=== PATIENT | male | born 1950 | race Caucasian/White ===

== ENCOUNTER → 2018-10-10 09:59 | Outpatient (CLI) | payer MEDICARE, SELFPAY ==
--- NOTE | 2018-10-10 | DI.US.S_ITS ---
PROCEDURE: US ABD AORTA ANEURYSM SCREEN INDICATIONS: AAA SCREEN TECHNIQUE: Real time scanning was performed of the aorta and iliac arteries, with image documentation. COMPARISON: None. FINDINGS: Aorta: Proximal aortic diameter measures 1.8 cm. Mid-aorta measures 1.7 cm. Distal aortic diameter is 1.5 cm. there are scattered mural calcifications Iliac arteries: Nonvisualized secondary to shadowing bowel gas IMPRESSION: No aortic aneurysm identified. Common iliac arteries not sonographically visible due shadowing bowel gas. Dictated by: Gregor Laws M.D. on 10/10/2018 at 15:17 Approved by: Gregor Laws M.D. on 10/10/2018 at 15:25
== END ==
PROVIDERS: PCP Internal Medicine; Visit Provider Internal Medicine
DX: Z13.6 Encounter for screening for cardiovascular disorders (principal)
CPT/HCPCS: 76706

== ENCOUNTER → 2019-05-28 15:27 | Outpatient (CLI) | payer MEDICARE, SELFPAY ==
--- NOTE | 2019-05-28 | DI.RAD.S_ITS ---
PROCEDURE: XR KNEE LT 1TO2V INDICATIONS: PAIN IN LEFT KNEE TECHNIQUE: 3 views of the left knee were acquired. COMPARISON: [facility], CR, XR KNEE RT 1TO2V, 05/28/2019, 15:37. FINDINGS: Bones: No fractures or dislocations. No suspicious bony lesions. There is a slight degree of thinning of the medial and lateral compartment cartilage at the left knee, near identical to that seen on the right. No effusion or loose body is found. No trauma is seen. Soft tissues: No joint effusion. No suspicious soft tissue calcifications. IMPRESSION: Equivalent degenerative knee joint osteoarthritis at the left knee when compared to the right, mild in overall severity. No trauma found. Dictated by: Ed Taylor M.D. on 05/28/2019 at 16:37 Approved by: Ed Taylor M.D. on 05/28/2019 at 16:38
--- NOTE | 2019-05-28 | DI.RAD.S_ITS ---
PROCEDURE: XR HAND LT 2V INDICATIONS: PAIN IN FINGER OF LEFT HAND TECHNIQUE: 3 views of the hand(s) acquired. COMPARISON: None. FINDINGS: Bones: Cortical irregularity and linear lucency involving the proximal shaft of the fourth middle phalanx. Carpal bones are normally aligned. No suspicious bony lesions. Soft tissues: No suspicious soft tissue calcifications. IMPRESSION: Mild cortical irregularity and lucency seen only on the lateral view involving the proximal shaft of the fourth middle phalanx which could represent nondisplaced fracture. Recommend correlation to point tenderness and if indicated followup x-ray in 10-14 days could be performed. Dictated by: Cayetano GRANDA Interpreted: Ruth Anaya MD on 05/28/2019 at 16:07 Approved by: Ruth Anaya M.D. on 05/28/2019 at 17:15
--- NOTE | 2019-05-28 | DI.RAD.S_ITS ---
PROCEDURE: XR KNEE RT 1TO2V INDICATIONS: PAIN IN RIGHT KNEE TECHNIQUE: 3 views of the knee were acquired. COMPARISON: None. FINDINGS: Bones: No fractures or dislocations. No suspicious bony lesions. There is mild thinning of the medial and lateral compartment joint interspace, but no effusion or loose body is seen. Note is made of a small degree of quadriceps tendon insertion spurring at the superior margin of the patella, consistent with some mild calcific tendinitis. Soft tissues: No joint effusion. No suspicious soft tissue calcifications. IMPRESSION: Mild degenerative knee joint osteoarthritis at the medial lateral compartments with joint space narrowing to a mild degree and no effusion or loose body is found. No trauma seen. Dictated by: Ed Taylor M.D. on 05/28/2019 at 16:35 Approved by: Ed Taylor M.D. on 05/28/2019 at 16:36
== END ==
PROVIDERS: PCP Internal Medicine; Visit Provider Internal Medicine
DX: M25.561 Pain in right knee (principal); M79.645 Pain in left finger(s); M25.562 Pain in left knee
CPT/HCPCS: 73130; 73560

== ENCOUNTER → 2019-09-12 10:40 | Outpatient (CLI) | payer MEDICARE, SELFPAY ==
--- NOTE | 2019-09-12 | DI.MRI.S_ITS ---
PROCEDURE: MR HEAD/BRAIN WO CON INDICATIONS: PARKINSONISM TECHNIQUE: Noncontrast axial T1 spin echo, axial T2 fast spin echo, sagittal and axial FLAIR, coronal T2 fast spin echo, axial gradient echo, axial diffusion and ADC through the brain. COMPARISON: None. FINDINGS: Image quality: Excellent. CSF Spaces: Basal cisterns are patent. No extra-axial fluid collections. Ventricles are normal in size and shape. Brain: No intracranial masses or hemorrhage. Rees/white matter interface is normal. Brainstem appears normal. Diffusion-weighted images demonstrate no acute ischemic insult. No chronic ischemic insults. Normal intravascular flow voids are present. Skull and face: Calvarium has normal marrow signal. Orbits appear normal. Sinuses: Sinuses and mastoids are clear. IMPRESSION: Minimal microvascular atherosclerotic change in the deep white matter of each hemisphere, no mass is found, no focus of prior ischemic injury is identified. Dictated by: Ed Taylor M.D. on 09/14/2019 at 8:55 Approved by: Ed Taylor M.D. on 09/14/2019 at 8:55
== END ==
PROVIDERS: Family Provider Internal Medicine; PCP Internal Medicine; Visit Provider Psychiatry & Neurology Neurology
DX: G20 Parkinson's disease (principal)
CPT/HCPCS: 70551

== ENCOUNTER → 2020-06-24 11:11 | Outpatient (CLI) | payer MEDICARE, SELFPAY ==
--- NOTE | 2020-06-24 | DI.MRI.S_ITS ---
PROCEDURE: MR STROKE Pre- and post-contrast brain MRI, non-contrast brain MR angiogram, pre- and postcontrast neck MR angiogram INDICATIONS: Diplopia TECHNIQUE: Brain: Noncontrast axial T1 spin echo, axial T2 fast spin echo, sagittal and axial FLAIR, coronal T2 fast spin echo, axial gradient echo, axial diffusion and ADC through the brain. After the administration of contrast, axial 3D VIBE of the cranial vasculature and brain. Brain MRA: Non-contrast 3-D time of flight MR angiogram, with multiple dkhbzde-ingnxvdlq-mqecasylzo (MIP) reformats performed. Neck MRA: Axial and sagittal TruFISP through the neck. Coronal dynamic MR angiogram during administration of contrast in the arterial and venous phases, with 3-dimenstional kusznml-tllfucwwb-bftxgkxpak (MIP) reformats constructed from subtraction images. COMPARISON: [facility], MR, MR HEAD/BRAIN WO CON, 09/12/2019, 11:15. FINDINGS: Image quality: Excellent. BRAIN: The ventricular system and cortical sulci demonstrate atrophy, consistent for the patient's stated age. There are areas of increased T2/FLAIR signal intensity within the periventricular and subcortical white matter. There is no acute intra-or extra axial fluid collection. No acute hemorrhage, mass lesion or midline shift. Brainstem is unremarkable. There are no areas of restricted diffusion. Globes are symmetrical. Sinuses demonstrate minimal ethmoid mucosal thickening. Osseous structures are intact. BRAIN MR ANGIOGRAM: Anterior circulation: The anterior circulation, including the anterior and middle cerebral arteries, as well as internal carotid arteries demonstrates no areas of hemodynamically significant stenosis, vascular occlusion or aneurysmal dilation. 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 Posterior circulation: The posterior circulation demonstrates a right vertebral artery dominance. Basilar artery and posterior cerebral arteries demonstrate no areas of hemodynamically significant stenosis, vascular occlusion or aneurysmal dilation. Posterior communicating arteries are within normal limits. NECK MR ANGIOGRAM: The origins of the left and right common, internal and external carotid arteries demonstrate no areas of hemodynamically significant stenosis, vascular occlusion or aneurysmal dilation. Origins of the left and right vertebral arteries demonstrate no areas of hemodynamically significant stenosis, vascular occlusion or aneurysmal dilation. Aortic arch demonstrates conventional anatomy. Limited, visualized portions of the subclavian vasculature are unremarkable. IMPRESSION: 1. No acute intracranial process. 2. Mild atrophy and chronic microvascular ischemic changes. 3. No areas of hemodynamically significant stenosis, vascular occlusion or aneurysmal dilation within the anterior or posterior circulation. 4. No areas of hemodynamically significant stenosis, vascular occlusion or aneurysmal dilation within the neck vasculature. Dictated by: Ruth Anaya M.D. on 06/24/2020 at 16:44 Approved by: Ruth Anaya M.D. on 06/24/2020 at 16:49
== END ==
PROVIDERS: Family Provider Internal Medicine; PCP Internal Medicine; Referring Provider Psychiatry & Neurology Neurology; Visit Provider Psychiatry & Neurology Neurology
DX: H53.2 Diplopia (principal); G20 Parkinson's disease
CPT/HCPCS: 70548; 70553; A9579

== ENCOUNTER → 2020-07-28 09:27 | Outpatient (CLI) | payer MEDICARE, SELFPAY ==
--- NOTE | 2020-07-28 | DI.ECHO.S_ITS ---
[facility] [facility]---------+ [facility] +---------+ : : [address] : : : : [id number] : : : : Phone: [phone]+ Echocardiogram Report + + :Name: VICENTE SINGH Study Date: 07/28/2020 Height: 71.5 in: :[facility] Weight: 288 lb : : Gender: Male BSA: 2.5 m2 : :: 1950 Age: 70 yrs BP: 175/98 mmHg: :Reason For Study: Personal History of other Disease of the : :Nervous System : :Ordering Physician: TANISHA, : :MIGUEL Performed By: Margoth Mcfarlane : :Referring: MACK [place] : + + Interpretation Summary The left ventricle is normal in size and wall thickness. The ejection fraction is estimated to be 60-65%. The right ventricle is normal in size and function. Injection of contrast documented no interatrial shunt. There is a bioprosthetic aortic valve. The prosthetic aortic valve is well-seated. V2 max: 245.4 cm/sec Ao mean P.6 mmHg There is probable normal prosthetic aortic valve function. The peak aortic velocity on the previous exam was 2.5 m/sec. Procedure: A two-dimensional transthoracic echocardiogram with color flow and Doppler was performed. The study quality was technically adequate. Comparison is made with the echocardiogram of 08/25/2018. A saline contrast injection was performed to assess for cardiac shunting. The injection was performed through an intravenous line in the right arm. The patient was in normal sinus rhythm during the exam. Left Ventricle: The left ventricle is normal in size and wall thickness. There is no thrombus. The ejection fraction is estimated to be 60-65%. There are no focal wall motion abnormalities. Diastolic parameters suggest a relaxation abnormality of the left ventricle, consistent with probable normal filling pressures. Right Ventricle: The right ventricle is normal in size and function. Atria: The left atrium is mildly dilated. The left atrium has remained unchanged in size since the prior echo exam. Right atrial size is normal. There is no Doppler evidence for an interatrial shunt. Injection of contrast documented no interatrial shunt. Mitral Valve: The mitral valve leaflets are slightly calcified. There is mild mitral annular calcification. There is trace mitral regurgitation. Aortic Valve: There is a bioprosthetic aortic valve. The prosthetic aortic valve is well-seated. There is probable normal prosthetic aortic valve function. V2 max: 245.4 cm/sec Ao mean P.6 mmHg. The peak aortic velocity on the previous exam was 2.5 m/sec. No aortic regurgitation is present. Tricuspid Valve: The tricuspid valve leaflets are thin and pliable. There is trace tricuspid regurgitation. Pulmonary artery pressures cannot be estimated because of the lack of a measurable TR jet velocity. Pulmonic Valve: The pulmonic valve is not well seen, but is grossly normal. There is no pulmonic valvular regurgitation. Great Vessels: The aortic root is normal size. The ascending aorta is mildly enlarged. There has been no significant change since the previous study. The inferior vena cava was not well visualized. Pericardium/ Pleura There is no pericardial effusion. There is an anterior echo-free space consistent with a fat pad. There is no pleural effusion. MMode/2D Measurements & Calculations LVIDd: 5.4 cm LVOT diam: 2.1 cm LVIDs: 3.6 cm Ao root diam: 3.7 cm FS: 32.5 % asc Aorta Diam: 3.8 cm EPSS: 1.0 cm Ao Arch Diam (Prox Trans): 3.3 cm IVSd: 1.0 cm LVPWd: 1.0 cm LV gonzalez. diameter/BSA (cm/m^2): 2.2 LV sys. diameter/BSA (cm/m^2): 1.5 LA A2 area: 25.7 cm2 RA long axis: 4.4 cm LA A4 area: 18.1 cm2 RA area: 12.4 cm2 LA length (vol): 6.1 cm RA vol: 29.6 ml LA vol: 65.2 ml RA : 12.0 ml/m2 LA vol index: 26.4 ml/m2 RVD1 (basal): 3.7 cm TAPSE: 2.0 cm Doppler Measurements & Calculations Ao V2 max: 245.4 cm/sec LVOT Max Tremayne: 100.2 cm/sec Ao V2 mean: 173.4 cm/sec LV V1 max P.0 mmHg Ao max P.1 mmHg LV V1 VTI: 25.2 cm Ao mean P.6 mmHg NATACHA(I,D): 1.5 cm2 Ao V2 VTI: 58.1 cm NATACHA(V,D): 1.4 cm2 sev ratio: 0.43 NATACHA indexed to BSA (cm^2/m^2): 0.59 MV E max tremayne: 98.2 cm/sec PA V2 max: 71.3 cm/sec MV A max tremayne: 110.0 cm/sec PA V2 mean: 46.7 cm/sec MV E/A: 0.89 PA mean P.0 mmHg Med Peak E' Tremayne: 7.6 cm/sec PA pr(Accel): 25.9 mmHg E/E' med: 12.9 Lat Peak E' Tremayne: 9.8 cm/sec E/E' lat: 10.0 E/e' average: 11.4 MV dec time: 0.22 sec SV(LVOT): 85.4 ml Reading Physician:05:42 PM
== END ==
PROVIDERS: Family Provider Internal Medicine; PCP Internal Medicine; Referring Provider Internal Medicine Cardiovascular Disease; Visit Provider Internal Medicine Cardiovascular Disease
DX: I77.89 Other specified disorders of arteries and arterioles (principal); Z95.2 Presence of prosthetic heart valve; Z86.69 Personal history of other diseases of the nervous system and sense organs
CPT/HCPCS: 93306

== ENCOUNTER → 2020-11-02 13:07 | Outpatient (CLI) | payer MEDICARE, SELFPAY ==
[2020-11-02] MEDS: COVID-19 VACC #1, MRNA(MOD) 100 MCG/0.5 ML VIAL IM (13:14)
== END ==
PROVIDERS: Family Provider Internal Medicine; PCP Internal Medicine; Visit Provider Internal Medicine
DX: Z23 Encounter for immunization (principal)
CPT/HCPCS: 0011A; 91301

== ENCOUNTER → 2020-11-30 12:33 | Outpatient (CLI) | payer MEDICARE, SELFPAY ==
[2020-11-30] MEDS: COVID-19 VACC #2, MRNA(MOD) 100 MCG/0.5 ML VIAL IM (12:39)
== END ==
PROVIDERS: Family Provider Internal Medicine; PCP Internal Medicine; Visit Provider Internal Medicine
DX: Z23 Encounter for immunization (principal)
CPT/HCPCS: 0012A; 91301

== ENCOUNTER → 2023-01-09 12:32 | Outpatient (CLI) | payer MEDICARE, SELFPAY ==
--- NOTE | 2023-01-09 | DI.ECHO.S_ITS ---
[place] +---------+ [facility] +---------+ : : [address] : : : : [id number] : : : : Phone: [phone]+ Echocardiogram Report + + :Name: VICENTE SINGH Study Date: 01/09/2023 Height: 72 in : :[facility] ReadingLocation: Weight: 270 lb : : Gender: Male BSA: 2.4 m2 : :: 1950 Age: 72 yrs BP: 135/79 mmHg: :Reason For Study: XENOGENIC HEART VALVE : :Ordering Physician: TANISHA, : :MIGUEL Performed By: Margoth Mcfarlane : :Referring: MIGUEL GARAY : + + Interpretation Summary The left ventricle is normal in size and wall thickness. Left ventricular systolic function is normal. The ejection fraction is estimated to be 60-65%. This is unchanged compared to the previous study. The right ventricle is normal in size and function. There is a bioprosthetic aortic valve. The prosthetic aortic valve is well-seated. The peak aortic velocity is 2.6 m/sec. The aortic valve mean gradient is 16 mmHg. The peak aortic velocity on the previous exam was 2.45 m/sec. No significant aortic stenosis. The ascending aorta is mildly enlarged. This is unchanged compared to the previous study. The IVC is of normal diameter and collapses greater than 50% with a sniff. This suggests a low right atrial pressure of 3 mm Hg. Procedure: A two-dimensional transthoracic echocardiogram with color flow and Doppler was performed. The study quality was technically adequate. Comparison is made with the echocardiogram of 07/28/2020. The patient was in sinus rhythm with heart rates between 65-77 bpm during the exam. Left Ventricle: The left ventricle is normal in size and wall thickness. There is no thrombus. The ejection fraction is estimated to be 60-65%. Left ventricular systolic function is normal. This is unchanged compared to the previous study. There are no focal wall motion abnormalities. MV E/A: 1.0 Med Peak E' Tremayne: 7.7 cm/sec E/E' med: 13.9. No significant diastolic dysfunction. Right Ventricle: The right ventricle is normal in size and function. Atria: The left atrium is mildly dilated. There has been no significant change since the previous study. Right atrial size is normal. There is no Doppler evidence for an interatrial shunt. Mitral Valve: The mitral valve leaflets are slightly calcified. There is mild mitral annular calcification. There is trace mitral regurgitation. Aortic Valve: There is a bioprosthetic aortic valve. The prosthetic aortic valve is well-seated. The peak aortic velocity is 2.6 m/sec. The aortic valve mean gradient is 16 mmHg. The peak aortic velocity on the previous exam was 2.45 m/sec. No aortic regurgitation is present. Tricuspid Valve: The tricuspid valve is normal. There is trace tricuspid regurgitation. The right ventricular systolic pressure is estimated to be at least 31 mmHg based on an estimated right atrial pressure of 3 mm Hg. Pulmonic Valve: The pulmonic valve leaflets are thin and pliable; valve motion is normal. There is no pulmonic valvular regurgitation. Great Vessels: The ascending aorta is mildly enlarged. This is unchanged compared to the previous study. The IVC is of normal diameter and collapses greater than 50% with a sniff. This suggests a low right atrial pressure of 3 mm Hg. Pericardium/ Pleura There is no pericardial effusion. There is no pleural effusion. MMode/2D Measurements & Calculations LVIDd: 5.3 cm LVOT diam: 2.1 cm LVIDs: 3.4 cm asc Aorta Diam: 3.8 cm FS: 34.7 % EPSS: 0.70 cm IVSd: 0.92 cm LVPWd: 0.84 cm LV gonzalez. diameter/BSA (cm/m^2): 2.2 LV sys. diameter/BSA (cm/m^2): 1.4 LA A2 area: 27.3 cm2 RA long axis: 4.2 cm LA A4 area: 22.8 cm2 RA area: 12.9 cm2 LA length (vol): 5.9 cm RA vol: 33.9 ml LA vol: 89.0 ml RA : 14.0 ml/m2 LA vol index: 36.8 ml/m2 IVC diam: 1.4 cm RVD1 (basal): 3.1 cm RVD2 (mid): 2.6 cm TAPSE: 2.0 cm Doppler Measurements & Calculations Ao V2 max: 255.7 cm/sec LVOT Max Tremayne: 90.2 cm/sec Ao V2 mean: 186.4 cm/sec LV V1 max P.3 mmHg Ao max P.2 mmHg LV V1 VTI: 23.0 cm Ao mean P.5 mmHg NATACHA(I,D): 1.3 cm2 Ao V2 VTI: 60.8 cm NATACHA(V,D): 1.2 cm2 sev ratio: 0.38 NATACHA indexed to BSA (cm^2/m^2): 0.52 MV E max tremayne: 106.5 cm/sec TR max tremayne: 262.0 cm/sec MV A max tremayne: 103.9 cm/sec TR max P.5 mmHg MV E/A: 1.0 PA V2 max: 107.9 cm/sec Med Peak E' Tremayne: 7.7 cm/sec PA V2 mean: 79.4 cm/sec E/E' med: 13.9 PA mean P.7 mmHg Lat Peak E' Tremayne: 9.8 cm/sec PA pr(Accel): 19.1 mmHg E/E' lat: 10.9 E/e' average: 12.4 MV dec time: 0.28 sec SV(LVOT): 77.2 ml Reading Physician:11:54 AM
== END ==
PROVIDERS: PCP Internal Medicine; Referring Provider Internal Medicine Cardiovascular Disease; Visit Provider Internal Medicine Cardiovascular Disease
DX: Z95.3 Presence of xenogenic heart valve (principal); I77.89 Other specified disorders of arteries and arterioles; I34.81 Nonrheumatic mitral (valve) annulus calcification
CPT/HCPCS: 93306

== ENCOUNTER 2023-12-28 12:58 | Emergency (ER) | payer MEDICARE, SELFPAY ==
[2023-12-28 13:01] VITALS: BP 151/72; PULSE 67; RESP 17; TEMP 36.1; O2SAT 95; BMI 30.4
--- NOTE | 2023-12-28 13:12 | DI.US.S_ITS ---
PROCEDURE: US PERIPH VENOUS LOW EXTREM LT INDICATIONS: r/o DVT TECHNIQUE: Real-time imaging, as well as color and pulse Doppler interrogation, were performed of the lower extremity deep veins from the inguinal ligament to the popliteal fossa, with documentation of the visualized calf veins. COMPARISON: None. FINDINGS: The common femoral, femoral, popliteal, and the visualized calf veins are normally compressible, and free of intraluminal thrombus. Color and pulse Doppler demonstrate normal phasic intraluminal flow. There is normal augmentation response to distal compression maneuver. The peroneal vein is not well identified secondary to adjacent edema. IMPRESSION: No findings of lower extremity deep venous thrombosis. Dictated by: Seymour Reynolds M.D. on 12/28/2023 at 12:56 Approved by: Seymour Reynolds M.D. on 12/28/2023 at 12:57
--- NOTE | 2023-12-28 13:17 | ED.EXTPRO ---
HPI - Extremity Problem General Chief complaint: Extremity Problem,Nontraumatic Stated complaint: lt leg swollen warm to the touch Time Seen by Provider: 12/28/23 13:08 Source: patient and family Mode of arrival: Ambulatory History of Present Illness HPI Narrative: 73-year-old male with history of gout, Parkinson's disease presents by private vehicle from home for several weeks of intermittent left lower extremity pain, worse in the last week. Patient states that today his left leg seemed to turn red, prompting his visit to the emergency department. He states that he has brought this up with his physicians in the past, but the issue has not been addressed. It does get better temporarily with leg elevation. He states he used to wear compression socks but his leg is too large to comfortably put socks on anymore, especially with his Parkinson's disease. He states that he was not been put on diuretics due to his gout. Related Data Home Medications Medication Instructions Recorded Confirmed ascorbic acid (vitamin C) 500 mg 500 mg PO BID #0 tabs 07/17/16 tablet Previous Rx's Medication Instructions Recorded ciprofloxacin HCl 500 mg tablet 500 mg PO BID #14 tabs 07/17/16 (Cipro) metronidazole 500 mg tablet 500 mg PO BID ##14 07/17/16 (Flagyl) cephalexin 500 mg capsule 500 mg PO QID #20 caps 12/28/23 furosemide 40 mg tablet (Lasix) 40 mg PO DAILY #10 tabs 12/28/23 Allergies Allergy/AdvReac Type Severity Reaction Status Date / Time Penicillins [PENICILLINS] Allergy Severe FAINTING Verified 12/28/23 13:01 Sulfa (Sulfonamide Allergy Severe swelling Verified 12/28/23 13:01 Antibiotics) [SULFA (SULFONAMIDE ANTIBIOTICS)] Review of Systems Review of Systems Narrative: negative except as noted above Patient History Medical History (Updated 12/28/23 @ 15:24 by Natalya Vivas MD) Gout (~1987) GERD (gastroesophageal reflux disease) Obesity (BMI 30-39.9) Ischemic heart disease Type 2 diabetes mellitus Hyperlipidemia associated with type 2 diabetes mellitus Hypertension Primary insomnia Snoring (~1987) Surgical History (Updated 07/02/18 @ 17:20 by WILL Garcia) S/P AVR (aortic valve replacement) (~2014) Social History (Updated 07/02/18 @ 17:28 by ART Garcia marital status: details: 2 (adopted) adult children, each with mental illness/special needs number of children: 2 household members: spouse lives independently: Yes housing: house pets and animals: Yes education level: college occupational status: employed 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 Smoking Status: Former smoker alcohol intake: former substance use type: does not use Smoking Status: Former smoker Substance Use Type: does not use Exam Initial Vital Signs Initial Vital Signs: Vital Signs Temperature 97 F L 12/28/23 13:01 Pulse Rate 67 12/28/23 13:01 Respiratory Rate 17 12/28/23 13:01 Blood Pressure 151/72 H 12/28/23 13:01 Pulse Oximetry 95 12/28/23 13:01 Oxygen Delivery Method Room Air 12/28/23 13:01 Const: Awake, alert, no acute distress, appears chronically unwell, older than stated age Cardiac: regular rate, regular rhythm RESP: unlabored, clear bilaterally, no wheezing GI: Soft, nontender, nondistended, no rebound, no guarding MSK: Atraumatic, LLE larger than RLE, warm, dry, 3+ pitting edema LLE to thigh, trace pitting edema RLE to knee Skin: Warm, Dry, intact, trace erythema from L ankle to L knee Neuro: AO x3, CN II-XII grossly intact, moves all extremities Course Orders Ordered: Discontinued Medications Furosemide (Furosemide 40 Mg/4 Ml Vial) 40 mg IV NOW ONE Stop: 12/28/23 15:24 Last Admin: 12/28/23 15:37 Dose: 40 mg Documented By: NL Vital Signs Vital signs: Vital Signs - 8 hr 12/28/23 13:01 Temperature 97 F L Pulse Rate 67 Respiratory Rate 17 Blood Pressure 151/72 H Pulse Oximetry 95 Oxygen Delivery Method Room Air MDM - Extremity (Nontraumatic) Differential Diagnosis Differential diagnosis: Likely deep venous thrombosis of upper extremity, lower extremity edema and deep vein thrombosis of lower extremity Lab Data 12/28/23 13:25 12/28/23 13:25 Labs: Lab Results 12/28/23 Range/Units 13:25 WBC 8.3 (4.5-11.0) X10^3/uL RBC 4.70 (4.5-5.9) X10^6/uL Hgb 13.9 (13.5-17.5) g/dL Hct 42.0 (41-53) % MCV 89.2 (80-100) fL MCH 29.6 (26-34) PG MCHC 33.2 (30-36) % RDW 13.6 (11.6-14.8) % Plt Count 235 (150-400) X10^3/uL Neut % (Auto) 71.6 (50-75) % Lymph % (Auto) 16.9 L (25-40) % [place] % (Auto) 8.2 (3-14) % Eos % (Auto) 2.6 (2-4) % Baso % (Auto) 0.7 (0-2) % Neut # (Auto) 5900 (2852-0835) /uL Lymph # (Auto) 1400 (8779-5849) /uL [place] # (Auto) 700 (0-900) /uL Eos # (Auto) 200 (0-450) /uL Baso # (Auto) 100 (0-100) /uL PT 12.2 (9.4-12.5) SECONDS INR 1.1 (0.9-1.3) Sodium 141 (137-145) mmol/L Potassium 4.2 (3.4-5.1) mmol/L Chloride 107 (98-107) mmol/L Carbon Dioxide 26 (22-32) mmol/L BUN 13 (9-20) mg/dL Creatinine 0.73 (0.66-1.25) mg/dL Estimated GFR > 60 (>60) mL/min BUN/Creatinine Ratio 17.8 (6-22) Glucose 107 (80-110) mg/dL Calcium 9.3 (8.4-10.2) mg/dL Total Bilirubin 0.6 (0.2-1.3) mg/dL AST 29 (17-59) IU/L ALT 12 (<50) IU/L Alkaline Phosphatase 66 (38-126) U/L Total Protein 7.4 (6.3-8.2) g/dL Albumin 4.2 (3.5-5.0) g/dL Globulin 3.2 (1.7-4.1) g/dL Albumin/Globulin Ratio 1.3 (1.0-2.8) Imaging Data US - DVT: Radiologist's Impression: PROCEDURE: US PERIPH VENOUS LOW EXTREM LT INDICATIONS: r/o DVT TECHNIQUE: Real-time imaging, as well as color and pulse Doppler interrogation, were performed of the lower extremity deep veins from the inguinal ligament to the popliteal fossa, with documentation of the visualized calf veins. COMPARISON: None. FINDINGS: The common femoral, femoral, popliteal, and the visualized calf veins are normally compressible, and free of intraluminal thrombus. Color and pulse Doppler demonstrate normal phasic intraluminal flow. There is normal augmentation response to distal compression maneuver. The peroneal vein is not well identified secondary to adjacent edema. IMPRESSION: No findings of lower extremity deep venous thrombosis. Dictated by: Seymour Reynolds M.D. on 12/28/2023 at 12:56 Approved by: Seymour Reynolds M.D. on 12/28/2023 at 12:57 [facility] Narrative Medical decision making narrative: Patient with longstanding intermittent waxing and waning swelling of the left lower extremity. Seems to have gotten worse in the last week with some redness starting on the lower extremity. Laboratory work is reviewed, unremarkable. Ultrasound of the lower extremity shows no DVT. Initial exam of the left lower extremity did not seem to reveal any temperature difference between the left and right extremities, however on repeat exam it does seem that the left lower extremity is warmer than the right lower extremity. Sensation and movement equal bilaterally. Labs and imaging discussed with the patient and his at bedside. They stated out of precaution it would be prudent to treat as evolving lower extremity cellulitis. Shared decision-making was had with the patient and at bedside. I stated that diuretics may help with the lower extremity swelling especially since he was edema on both sides, however it would, the risk of worsening his gout. Patient stated that he would like to try as his lower extremity swelling has become a significant bother and he would like to try anything to see if it helps. Initial dose of Lasix given in the emergency department and short course of diuretics sent to pharmacy of choice. PCP and cardiology follow up advised. Discharge Plan Departure Patient Disposition: Home Clinical Impression: Leg swelling, Cellulitis Instructions: DI for Cellulitis -- Adult, DI for Peripheral Edema -- Bilateral Activity Restrictions/Additional Instructions: Your ultrasound today did not show any evidence of blood clots. When I initially felt your leg did not feel warm, but on reassessment it did feel warm to the touch, and so as a precaution I will treat you for cellulitis. Take all of your antibiotics as prescribed. After shared decision-making I will start you on a short course of Lasix to help decrease your swelling. This may flare your gout, make sure you monitor your diet closely and take your allopurinol as prescribed. 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 Prescriptions: New cephalexin 500 mg capsule 500 mg PO QID Qty: 20 0RF furosemide [Lasix] 40 mg tablet 40 mg PO DAILY Qty: 10 0RF No Action ascorbic acid (vitamin C) 500 MG tablet 500 mg PO BID Qty: 0 metronidazole [Flagyl] 500 MG tablet 500 mg PO BID Qty: 14 0RF ciprofloxacin HCl [Cipro] 500 MG tablet 500 mg PO BID Qty: 14 0RF Referrals: Ynes Laird MD [Primary Care Provider] - Stand Alone Forms: Patient Portal/API
[2023-12-28 13:44] LABS: INR 1.1 (0.9-1.3); Prothrombin Time 12.2 SECONDS (9.4-12.5)
[2023-12-28 13:49] LABS: Alanine Aminotransferase 12 IU/L (<50); Albumin 4.2 g/dL (3.5-5.0); Albumin Globulin Ratio 1.3 (1.0-2.8); Alkaline Phosphatase 66 U/L (38-126); Aspartate Aminotransferase 29 IU/L (17-59); BUN Creatinine Ratio 17.8 (6-22); Bilirubin Total 0.6 mg/dL (0.2-1.3); Blood Urea Nitrogen 13 mg/dL (9-20); Calcium 9.3 mg/dL (8.4-10.2); Carbon Dioxide 26 mmol/L (22-32); Chloride 107 mmol/L (98-107); Estimated Glomerular Filt Rate > 60 mL/min (>60); Globulin 3.2 g/dL (1.7-4.1); Glucose 107 mg/dL (80-110); HEMOLYSIS < 15 (0-50); Potassium 4.2 mmol/L (3.4-5.1); Sodium 141 mmol/L (137-145); Total Protein 7.4 g/dL (6.3-8.2)
[2023-12-28 13:56] LABS: Add Manual Diff / Slide Review NO; Basophils Absolute Auto 100 /uL (0-100); Basophils Percent Auto 0.7 % (0-2); Eosinophils Absolute Auto 200 /uL (0-450); Eosinophils Percent Auto 2.6 % (2-4); Hemoglobin 13.9 g/dL (13.5-17.5); Lymphocytes Absolute Auto 1400 /uL (1100-4500); Lymphocytes Percent Auto 16.9 % (25-40); Mean Corpuscular HGB Conc 33.2 % (30-36); Mean Corpuscular Hemoglobin 29.6 PG (26-34); Mean Corpuscular Volume 89.2 fL (80-100); Monocytes Absolute Auto 700 /uL (0-900); Monocytes Percent Auto 8.2 % (3-14); Neutrophils Absolute Auto 5900 /uL (1500-7000); Neutrophils Percent Auto 71.6 % (50-75); Platelet Count 235 X10^3/uL (150-400); Red Cell Distribution Width 13.6 % (11.6-14.8); White Blood Cell Count 8.3 X10^3/uL (4.5-11.0)
[2023-12-28] MEDS: FUROSEMIDE 40 MG/4 ML VIAL IV (15:37)
[2023-12-28 15:43] VITALS: PULSE 56; O2SAT 97
[2023-12-28 15:44] VITALS: BP 170/78; PULSE 57; O2SAT 98
--- NOTE | 2023-12-28 15:55 | PC.NURSE ---
pt given lasix, unsure if he has had it prior to today. pt being held prior to discharge for 15min. given urinal to take home for comfort.
[2023-12-28 16:03] VITALS: O2SAT 93
[2023-12-28 16:04] VITALS: BP 176/80; PULSE 55; O2SAT 97
== END 2023-12-28 16:07 | disposition home or self-care (01) ==
PROVIDERS: Emergency Provider Emergency Medicine; PCP Internal Medicine
DX: L03.116 Cellulitis of left lower limb (principal); R60.0 Localized edema; G20.A1 Parkinson's disease without dyskinesia, without mention of fluctuations
CPT/HCPCS: 36415; 80053; 85025; 85610; 93971; 96374; 99284; J1940

== ENCOUNTER → 2024-02-25 13:32 | Outpatient (CLI) | payer MEDICARE, SELFPAY ==
--- NOTE | 2024-02-25 13:35 | DI.RAD.S_ITS ---
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 COMPARISON: None. FINDINGS: Bones: Questionable nondisplaced 1st tuft fracture. Soft tissues: No suspicious soft tissue densities. Soft tissue swelling of the 1st digit. IMPRESSION: Questionable nondisplaced 1st tuft fracture. Dictated by: Nahum Lynch M.D. on 02/25/2024 at 15:11 Approved by: Nahum Lynch M.D. on 02/25/2024 at 15:12
== END ==
PROVIDERS: PCP Internal Medicine; Referring Provider Student in an Organized Health Care Education/Training Program; Visit Provider Student in an Organized Health Care Education/Training Program
DX: S99.922A Unspecified injury of left foot, initial encounter (principal); X58.XXXA Exposure to other specified factors, initial encounter
CPT/HCPCS: 73660

== ENCOUNTER → 2024-03-05 13:04 | Outpatient (CLI) | payer MEDICARE, SELFPAY | PROVIDERS: PCP Internal Medicine; Referring Provider Student in an Organized Health Care Education/Training Program; Visit Provider Surgery | DX: S91.102A Unspecified open wound of left great toe without damage to nail, initial encounter (principal); S91.105A Unspecified open wound of left lesser toe(s) without damage to nail, initial encounter; E11.628 Type 2 diabetes mellitus with other skin complications; R60.0 Localized edema; L53.9 Erythematous condition, unspecified; L08.89 Other specified local infections of the skin and subcutaneous tissue | CPT/HCPCS: 97597; 99203; 99214 ==

== ENCOUNTER → 2024-03-12 15:11 | Outpatient (CLI) | payer MEDICARE, SELFPAY | PROVIDERS: PCP Internal Medicine; Referring Provider Student in an Organized Health Care Education/Training Program; Visit Provider Surgery | DX: S91.112D Laceration without foreign body of left great toe without damage to nail, subsequent encounter (principal); S91.115D Laceration without foreign body of left lesser toe(s) without damage to nail, subsequent encounter | CPT/HCPCS: 99213 ==

== ENCOUNTER 2024-04-28 16:37 | Observation (INO) | payer MEDICARE, SELFPAY ==
[2024-04-28 16:40] VITALS: BP 116/62; PULSE 76; RESP 16; TEMP 36.4; O2SAT 96; BMI 36.6
--- NOTE | 2024-04-28 16:47 | DI.US.S_ITS ---
PROCEDURE: US [facility] VENOUS LOW EXTREM LT INDICATIONS: increased swelling, redness, pain TECHNIQUE: Real-time imaging, as well as color and pulse Doppler interrogation, were performed of the lower extremity deep veins from the inguinal ligament to the popliteal fossa, with documentation of the visualized calf veins. COMPARISON: [facility], [facility] VENOUS LOW EXTREM LT, 12/28/2023, 13:22. FINDINGS: The common femoral, femoral, popliteal, and the visualized calf veins are normally compressible, and free of intraluminal thrombus. Color and pulse Doppler demonstrate normal phasic intraluminal flow. There is normal augmentation response to distal compression maneuver. IMPRESSION: No findings of lower extremity deep venous thrombosis. Dictated by: Ruth Anaya M.D. on 04/28/2024 at 18:50 Approved by: Ruth Anaya M.D. on 04/28/2024 at 18:52
--- NOTE | 2024-04-28 18:48 | ED.EXTPRO ---
HPI - Extremity Problem General Chief complaint: Extremity Problem,Nontraumatic Stated complaint: leg swelling and painful Time Seen by Provider: 04/28/24 18:47 Source: patient Mode of arrival: Wheelchair Related Data Home Medications Medication Instructions Recorded Confirmed allopurinol 300 mg tablet 300 mg PO DAILY 02/25/24 02/25/24 ascorbic acid (vitamin C) 500 mg mg PO PRN 02/25/24 02/25/24 capsule aspirin 81 mg chewable tablet 81 mg PO DAILY 02/25/24 02/25/24 atorvastatin 10 mg tablet (Lipitor) 5 mg PO BEDTIME PRN 02/25/24 02/25/24 capsaicin 0.025 % topical cream 1 applic topical QID 02/25/24 02/25/24 carbidopa 25 mg-levodopa 100 mg 2 tab PO TID 02/25/24 02/25/24 disintegrating tablet carbidopa ER 50 mg-levodopa 200 mg 1 tab PO BEDTIME 02/25/24 02/25/24 tablet,extended release carvedilol 6.25 mg tablet (Coreg) 6.25 mg PO BID 02/25/24 02/25/24 coenzyme Q10 200 mg/gram oral mg PO 02/25/24 02/25/24 powder (H2Q CoQ10) fluticasone propionate 50 2 spray intranasal DAILY 02/25/24 02/25/24 mcg/actuation nasal spray,suspension glipizide 5 mg tablet 5 mg PO DAILY 02/25/24 02/25/24 losartan 50 mg tablet (Cozaar) 50 mg PO DAILY 02/25/24 02/25/24 mecobalamin (vitamin B12) 2,500 mcg PO 02/25/24 02/25/24 mcg chewable tablet metformin 1,000 mg tablet 1,000 mg PO BID 02/25/24 02/25/24 multivitamin 1 tab PO DAILY 02/25/24 02/25/24 omeprazole 20 mg capsule,delayed 20 mg PO DAILY 02/25/24 02/25/24 release trazodone 50 mg tablet 75 mg PO BEDTIME PRN 02/25/24 02/25/24 venlafaxine 75 mg capsule,extended 75 mg PO DAILY 02/25/24 02/25/24 release 24 hr Previous Rx's Medication Instructions Recorded furosemide 40 mg tablet (Lasix) 40 mg PO DAILY #10 tabs 12/28/23 Allergies Allergy/AdvReac Type Severity Reaction Status Date / Time Penicillins [PENICILLINS] Allergy Severe FAINTING Verified 02/25/24 12:27 Sulfa (Sulfonamide Allergy Severe swelling Verified 02/25/24 12:27 Antibiotics) [SULFA (SULFONAMIDE ANTIBIOTICS)] strawberry Allergy Rash Verified 04/28/24 16:40 Patient History Medical History Gout (~1987) GERD (gastroesophageal reflux disease) Obesity (BMI 30-39.9) Ischemic heart disease Type 2 diabetes mellitus Hyperlipidemia associated with type 2 diabetes mellitus Hypertension Primary insomnia Snoring (~1987) Surgical History S/P AVR (aortic valve replacement) (~2014) Social History (Updated 07/02/18 @ 17:28 by WILL Garcia) marital status: details: 2 (adopted) adult children, each with mental illness/special needs number of children: 2 household members: spouse lives independently: Yes housing: house pets and animals: Yes education level: college occupational status: employed 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 Smoking Status: Former smoker alcohol intake: former substance use type: does not use Smoking Status: Former smoker Substance Use Type: does not use Exam Initial Vital Signs Initial Vital Signs: Vital Signs Temperature 97.5 F L 04/28/24 16:40 Pulse Rate 76 04/28/24 16:40 Respiratory Rate 16 04/28/24 16:40 Blood Pressure 116/62 04/28/24 16:40 Pulse Oximetry 96 04/28/24 16:40 Oxygen Delivery Method Room Air 04/28/24 16:40 Course Orders Ordered: ED Orders 04/28/24 16:47 US periph venous low extrem lt Stat 04/28/24 18:47 CBC Auto Diff [Complete Blood Count AUTO DIFF] Stat CMP [Comprehensive Metabolic Panel] Stat Lactate (Lactic Acid) Stat Vital Signs Vital signs: Vital Signs - 8 hr 04/28/24 16:40 Temperature 97.5 F L Pulse Rate 76 Respiratory Rate 16 Blood Pressure 116/62 Pulse Oximetry 96 Oxygen Delivery Method Room Air Discharge Plan Departure Prescriptions: No Action carvedilol [Coreg] 6.25 mg tablet 6.25 mg PO BID Rx Instructions: must administer with a meal/food allopurinol 300 mg tablet 300 mg PO DAILY losartan [Cozaar] 50 mg tablet 50 mg PO DAILY metformin 1,000 mg tablet 1,000 mg PO BID glipizide 5 mg tablet 5 mg PO DAILY atorvastatin [Lipitor] 10 mg tablet 5 mg PO BEDTIME PRN venlafaxine 75 mg capsule,extended release 24hr 75 mg PO DAILY carbidopa-levodopa 25-100 mg tablet,disintegrating 2 tab PO TID carbidopa-levodopa 50-200 mg tablet extended release 1 tab PO BEDTIME trazodone 50 mg tablet 75 mg PO BEDTIME PRN ascorbic acid (vitamin C) 500 mg capsule PO PRN Patient Comments: twice a day omeprazole 20 mg capsule,delayed release(DR/EC) 20 mg PO DAILY mecobalamin (vitamin B12) 2,500 mcg tablet,chewable PO aspirin 81 mg tablet,chewable 81 mg PO DAILY multivitamin Tablet 1 tab PO DAILY H2Q CoQ10 200 mg/gram powder PO fluticasone propionate 50 mcg/actuation spray,suspension 2 spray intranasal DAILY Rx Instructions: administer into each nostril capsaicin 0.025 % cream 1 applic topical QID Rx Instructions: do not wash area for at least 30 min after application furosemide [Lasix] 40 mg tablet 40 mg PO DAILY Qty: 10 0RF Referrals: Ynes Laird MD [Primary Care Provider] -
[2024-04-28 19:52] VITALS: BP 157/72; PULSE 52; O2SAT 96
[2024-04-28 19:53] VITALS: BP 157/72; PULSE 52; O2SAT 95
[2024-04-28 19:54] LABS: Add Manual Diff / Slide Review NO; Basophils Absolute Auto 100 /uL (0-100); Basophils Percent Auto 0.8 % (0-2); Eosinophils Absolute Auto 200 /uL (0-450); Eosinophils Percent Auto 1.6 % (2-4); Hematocrit 41.5 % (41-53); Hemoglobin 13.6 g/dL (13.5-17.5); Lymphocytes Absolute Auto 1800 /uL (1100-4500); Lymphocytes Percent Auto 15.9 % (25-40); Mean Corpuscular HGB Conc 32.8 % (30-36); Mean Corpuscular Hemoglobin 29.4 PG (26-34); Mean Corpuscular Volume 89.8 fL (80-100); Monocytes Absolute Auto 1000 /uL (0-900); Monocytes Percent Auto 9.2 % (3-14); Neutrophils Absolute Auto 8000 /uL (1500-7000); Neutrophils Percent Auto 72.5 % (50-75); Platelet Count 237 X10^3/uL (150-400); Red Blood Cell Count 4.62 X10^6/uL (4.5-5.9)
[2024-04-28 20:00] VITALS: BP 145/71; PULSE 53; O2SAT 96
[2024-04-28 20:07] LABS: Alanine Aminotransferase 7 IU/L (<50); Albumin 4.3 g/dL (3.5-5.0); Albumin Globulin Ratio 1.7 (1.0-2.8); Alkaline Phosphatase 90 U/L (38-126); Aspartate Aminotransferase 22 IU/L (17-59); BUN Creatinine Ratio 19.2 (6-22); Bilirubin Total 0.5 mg/dL (0.2-1.3); Blood Urea Nitrogen 14 mg/dL (9-20); Calcium 8.9 mg/dL (8.4-10.2); Carbon Dioxide 23 mmol/L (22-32); Chloride 107 mmol/L (98-107); Estimated Glomerular Filt Rate > 60 mL/min (>60); Globulin 2.6 g/dL (1.7-4.1); Glucose 95 mg/dL (80-110); HEMOLYSIS < 15 (0-50); Lactate (Lactic Acid) 1.3 mmol/L (0.7-2.1); Potassium 4.4 mmol/L (3.4-5.1); Sodium 141 mmol/L (137-145); Total Protein 6.9 g/dL (6.3-8.2)
[2024-04-28 20:30] VITALS: BP 149/73; PULSE 56; RESP 18; O2SAT 97
--- NOTE | 2024-04-28 21:44 | ED_ITS ---
HPI - Extremity Problem General Chief complaint: Extremity Problem,Nontraumatic Stated complaint: leg swelling and painful Time Seen by Provider: 04/28/24 18:47 Source: patient Mode of arrival: Wheelchair History of Present Illness HPI Narrative: 74-year-old male with history of left foot and leg cellulitis 4 months ago treated with antibiotics, got better, now with 4 days duration increasing redness and swelling to the left leg. No recent injury recalled. No history of sores around the toenails or between the toes. No history of blood clots to legs or lungs. No shortness of breath or chest pain. He does not feel feverish. Increasing pain. He has not tried any treatments thus far, not taking any antibiotics. Related Data Home Medications Medication Instructions Recorded Confirmed allopurinol 300 mg tablet 300 mg PO DAILY 02/25/24 04/29/24 ascorbic acid (vitamin C) 500 mg 500 mg PO DAILY 02/25/24 04/29/24 capsule aspirin 81 mg chewable tablet 81 mg PO DAILY 02/25/24 04/29/24 atorvastatin 10 mg tablet (Lipitor) 5 mg PO BEDTIME 02/25/24 04/29/24 capsaicin 0.025 % topical cream 1 applic topical QID 02/25/24 04/29/24 carbidopa 25 mg-levodopa 100 mg 2 tab PO TID 02/25/24 04/29/24 disintegrating tablet carbidopa ER 50 mg-levodopa 200 mg 1 tab PO BEDTIME 02/25/24 04/29/24 tablet,extended release carvedilol 6.25 mg tablet (Coreg) 6.25 mg PO BID 02/25/24 04/29/24 fluticasone propionate 50 2 spray intranasal DAILY 02/25/24 04/29/24 mcg/actuation nasal spray,suspension losartan 50 mg tablet (Cozaar) 50 mg PO DAILY 02/25/24 04/29/24 mecobalamin (vitamin B12) 2,500 2,500 mcg PO DAILY 02/25/24 04/29/24 mcg chewable tablet multivitamin 1 tab PO DAILY 02/25/24 04/29/24 omeprazole 20 mg capsule,delayed 20 mg PO DAILY PRN Heartburn 02/25/24 02/25/24 release trazodone 50 mg tablet 75 mg PO BEDTIME PRN Insomnia 02/25/24 04/29/24 venlafaxine 75 mg capsule,extended 75 mg PO DAILY 02/25/24 04/29/24 release 24 hr glipizide 5 mg tablet, extended 5 mg PO DAILY 04/29/24 04/29/24 release 24 hr metformin 500 mg tablet,extended 1,000 mg PO BID 04/29/24 04/29/24 release 24 hr pregabalin 150 mg capsule 150 mg PO TID 04/29/24 04/29/24 tamsulosin 0.4 mg capsule 0.4 mg PO DAILY 04/29/24 04/29/24 Previous Rx's Medication Instructions Recorded furosemide 40 mg tablet (Lasix) 40 mg PO DAILY #10 tabs 12/28/23 Allergies Allergy/AdvReac Type Severity Reaction Status Date / Time Penicillins [PENICILLINS] Allergy Severe FAINTING Verified 02/25/24 12:27 Sulfa (Sulfonamide Allergy Severe swelling Verified 02/25/24 12:27 Antibiotics) [SULFA (SULFONAMIDE ANTIBIOTICS)] strawberry Allergy Rash Verified 04/28/24 16:40 Review of Systems Review of Systems Narrative: see HPI Patient History Medical History Gout (~1987) GERD (gastroesophageal reflux disease) Obesity (BMI 30-39.9) Ischemic heart disease Type 2 diabetes mellitus Hyperlipidemia associated with type 2 diabetes mellitus Hypertension Primary insomnia Snoring (~1987) Surgical History S/P AVR (aortic valve replacement) (~2014) Social History marital status: details: 2 (adopted) adult children, each with mental illness/special needs number of children: 2 household members: spouse lives independently: Yes housing: house pets and animals: Yes education level: college occupational status: employed 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 HEAD: Atraumatic. Normocephalic. EYES: Pupils equal round and reactive. Extraocular motions intact. No scleral icterus. No injection or drainage. ENT: Nose without bleeding, purulent drainage. Throat without erythema, tonsillar hypertrophy or exudate. Airway patent. NECK: Trachea midline. Non tender CARDIOVASCULAR: Regular rate and rhythm without murmurs, gallops, or rubs. RESPIRATORY: Clear to auscultation. Breath sounds equal bilaterally. No wheezes, rales, or rhonchi. GASTROINTESTINAL: Abdomen soft, non-tender, nondistended. EXTREMITIES: Erythema anterior tibia mcfp up down to dorsum of the foot to the toes, no paronychial erythema, no nail abnormalities obvious, no inter trismus ulceration or fungal changes, no foot ulcers obvious. No edema or joint tenderness. BACK: Nontender without deformity or crepitance. No flank tenderness. NEURO: AOx3. SKIN: No rash or erythema of visible areas Initial Vital Signs Initial Vital Signs: Vital Signs Temperature 97.5 F L 04/28/24 16:40 Pulse Rate 76 04/28/24 16:40 Respiratory Rate 16 04/28/24 16:40 Blood Pressure 116/62 04/28/24 16:40 Pulse Oximetry 96 04/28/24 16:40 Oxygen Delivery Method Room Air 04/28/24 16:40 Course Orders Ordered: ED Orders 04/29/24 08:48 Basic Metabolic Panel DAILY Magnesium DAILY 04/30/24 07:00 Basic Metabolic Panel DAILY Magnesium DAILY 05/01/24 07:00 Basic Metabolic Panel DAILY Magnesium DAILY Acetaminophen (Acetaminophen 325 Mg Tablet) 650 mg PO Q6H PRN PRN Reason: Fever/Mild Pain (1-3) Albuterol (Albuterol 2.5 Mg/3 Ml Neb (Adult)) 2.5 mg INH [id number] PRN PRN Reason: Dyspnea Allopurinol (Allopurinol 100 Mg Tablet) 300 mg PO DAILY COUNTS INCLUDE 234 BEDS AT THE [facility] Last Admin: 04/29/24 09:41 Dose: 300 mg Documented By: ENOCH Aspirin (Aspirin 81 Mg Chew Tab) 81 mg PO DAILY COUNTS INCLUDE 234 BEDS AT THE [facility] Last Admin: 04/29/24 09:39 Dose: 81 mg Documented By: ENOCH Atorvastatin Calcium (Atorvastatin 20 Mg Tablet) 5 mg PO BEDTIME COUNTS INCLUDE 234 BEDS AT THE [facility] Bisacodyl (Bisacodyl 5 Mg Tablet) 10 mg PO DAILY PRN PRN Reason: Constipation Calcium Carbonate (Calcium Carbonate 500 Mg Tab) 1,000 mg PO Q4HR PRN PRN Reason: Dyspepsia Carbidopa/Levodopa (Carbidopa-Levodopa Er 50/200 Tablet) 1 each PO BEDTIME COUNTS INCLUDE 234 BEDS AT THE [facility] Carbidopa/Levodopa (Carbidopa-Levodopa 25/100 Tablet) 2 each PO TID COUNTS INCLUDE 234 BEDS AT THE [facility] Last Admin: 04/29/24 14:48 Dose: 2 each Documented By: Admin: 04/29/24 09:49 Dose: 2 each Documented By: ENOCH Carvedilol (Carvedilol 3.125 Mg Tablet) 6.25 mg PO BID COUNTS INCLUDE 234 BEDS AT THE [facility] Last Admin: 04/29/24 09:40 Dose: 6.25 mg Documented By: ENOCH Enoxaparin Sodium (Enoxaparin 40 Mg/0.4 Ml Syringe) 40 mg SUBCUT DAILY COUNTS INCLUDE 234 BEDS AT THE [facility] Last Admin: 04/29/24 09:41 Dose: 40 mg Documented By: ENOCH Fluticasone Propionate (Fluticasone 120 [place]/16 Gm [place].Susp) 2 spray NASAL DAILY COUNTS INCLUDE 234 BEDS AT [facility] Last Admin: 04/29/24 09:29 Dose: Not Given Documented By: ENOCH Furosemide (Furosemide 40 Mg Tablet) 40 mg PO DAILY COUNTS INCLUDE 234 BEDS AT THE [facility] Last Admin: 04/29/24 09:29 Dose: Not Given Documented By: ENOCH Glipizide (Glipizide 5 Mg Tablet) 5 mg PO DAILY COUNTS INCLUDE 234 BEDS AT THE [facility] Last Admin: 04/29/24 09:40 Dose: 5 mg Documented By: ENOCH Hydralazine HCl (Hydralazine 20 Mg/Ml Vial) 10 mg IV Q6HR PRN PRN Reason: SBP>= 160 or DBP >=110 Ceftriaxone Sodium 1,000 mg/ (Sodium Chloride) 100 mls @ 200 mls/hr IV Q24H COUNTS INCLUDE 234 BEDS AT THE [facility] Vancomycin HCl/Dextrose (Vancomycin) 1,500 mg in 300 mls @ 200 mls/hr IV Q12H COUNTS INCLUDE 234 BEDS AT THE [facility] Last Admin: 04/29/24 11:24 Dose: 200 mls/hr Documented By: ENOCH Losartan Potassium (Losartan 50 Mg Tablet) 50 mg PO DAILY COUNTS INCLUDE 234 BEDS AT [facility] Last Admin: 04/29/24 09:40 Dose: 50 mg Documented By: ENOCH Melatonin (Melatonin 3 Mg Tablet) 9 mg PO BEDTIME PRN PRN Reason: insomnia Morphine Sulfate (Morphine 4 Mg/Ml Inj) 3 mg IV Q2HR PRN PRN Reason: Pain, Moderate (4-6) Multivitamins (Multivitamin 1 Tablet) 1 tab PO DAILY COUNTS INCLUDE 234 BEDS AT THE [facility] Last Admin: 04/29/24 09:29 Dose: Not Given Documented By: ENOCH Naloxone HCl (Naloxone 0.4 Mg/Ml Vial) 0.2 mg IV Q2MIN PRN PRN Reason: Opiate Reversal Stored In Pharmacy 1 each PO PRN PRN PRN Reason: PROTOCOL Ondansetron HCl (Ondansetron 4 Mg/2 Ml Inj) 4 mg IV Q8HR PRN PRN Reason: Nausea And Vomiting Oxycodone HCl (Oxycodone Ir 5 Mg Tablet) 5 mg PO Q3H PRN PRN Reason: Pain, Moderate (4-6) Pantoprazole Sodium (Pantoprazole Dr 20 Mg Tablet) 20 mg PO DAILY COUNTS INCLUDE 234 BEDS AT THE [facility] Last Admin: 04/29/24 09:41 Dose: 20 mg Documented By: ENOCH Sodium Chloride (Sodium Chloride 0.9% Flush) 10 ml IV BID COUNTS INCLUDE 234 BEDS AT THE [facility] Last Admin: 04/29/24 09:42 Dose: 10 ml Documented By: ENOCH Sodium Chloride (Sodium Chloride 0.9% Flush) 10 ml IV PRN PRN PRN Reason: Flush Trazodone HCl (Trazodone 50 Mg Tablet) 75 mg PO BEDTIME PRN PRN Reason: Insomnia Last Admin: 04/29/24 02:56 Dose: 75 mg Documented By: Vancomycin HCl (Vancomycin Trough) 1 request [facility] [place] 1130 COUNTS INCLUDE 234 BEDS AT THE [facility] Stop: 04/30/24 11:31 Venlafaxine HCl (Venlafaxine Er 75 Mg Cap) 75 mg PO DAILY COUNTS INCLUDE 234 BEDS AT THE [facility] Last Admin: 04/29/24 09:40 Dose: 75 mg Documented By: ENOCH Discontinued Medications Ceftriaxone Sodium 1,000 mg/ (Sodium Chloride) 100 mls @ 200 mls/hr IV NOW ONE Stop: 04/28/24 23:11 Last Infusion: 04/29/24 00:58 Dose: Infused Documented By: Admin: 04/28/24 23:46 Dose: 200 mls/hr Documented By: CASEY Vancomycin HCl 1,750 mg/ (Sodium Chloride) 500 mls @ 250 mls/hr IV NOW ONE Stop: 04/28/24 23:11 Last Admin: 04/29/24 00:17 Dose: Not Given Documented By: FARIDA Vancomycin HCl/Dextrose (Vancomycin) 1,500 mg in 300 mls @ 200 mls/hr IV NOW ONE Stop: 04/29/24 01:36 Last Admin: 04/29/24 00:18 Dose: 200 mls/hr Documented By: DKB Vancomycin HCl 1,500 mg/ (Sodium Chloride) 100 mls @ 100 mls/hr IV Q12H PETEY Sodium Chloride (Normal Saline 0.9%) 1,000 mls @ 100 mls/hr IV CONT COUNTS INCLUDE 234 BEDS AT THE [facility] Last Admin: 04/29/24 02:01 Dose: 100 mls/hr Documented By: Morphine Sulfate (Morphine 4 Mg/Ml Inj) 3 mg IV Q2HR COUNTS INCLUDE 234 BEDS AT THE [facility] Last Admin: 04/29/24 06:56 Dose: Not Given Documented By: Admin: 04/29/24 05:00 Dose: Not Given Documented By: Admin: 04/29/24 03:00 Dose: Not Given Documented By: Admin: 04/29/24 01:00 Dose: Not Given Documented By: (Carbidopa-Levodopa 25-100 Mg Tablet, Disintegrating) 2 tab PO TID COUNTS INCLUDE 234 BEDS AT THE [facility] Last Admin: 04/29/24 11:01 Dose: Not Given Documented By: ENOCH Vital Signs Vital signs: Vital Signs - 8 hr 04/28/24 19:52 04/28/24 19:53 04/28/24 19:53 Pulse Rate 52 L 52 L Respiratory Rate Blood Pressure 157/72 H 157/72 H Pulse Oximetry 96 95 04/28/24 20:00 04/28/24 20:00 04/28/24 20:30 Pulse Rate 53 L Respiratory Rate Blood Pressure 145/71 H 149/73 H Pulse Oximetry 96 04/28/24 20:30 Pulse Rate 56 L Respiratory Rate 18 Blood Pressure Pulse Oximetry 97 MDM - Extremity (Nontraumatic) Lab Data 04/28/24 19:42 04/29/24 08:48 Labs: Lab Results 04/28/24 04/28/24 Range/Units 19:42 21:34 WBC 11.0 (4.5-11.0) X10^3/uL RBC 4.62 (4.5-5.9) X10^6/uL Hgb 13.6 (13.5-17.5) g/dL Hct 41.5 (41-53) % MCV 89.8 (80-100) fL MCH 29.4 (26-34) PG MCHC 32.8 (30-36) % RDW 14.0 (11.6-14.8) % Plt Count 237 (150-400) X10^3/uL Neut % (Auto) 72.5 (50-75) % Lymph % (Auto) 15.9 L (25-40) % [place] % (Auto) 9.2 (3-14) % Eos % (Auto) 1.6 L (2-4) % Baso % (Auto) 0.8 (0-2) % Neut # (Auto) 8000 H (6969-6205) /uL Lymph # (Auto) 1800 (3566-1786) /uL [place] # (Auto) 1000 H (0-900) /uL Eos # (Auto) 200 (0-450) /uL Baso # (Auto) 100 (0-100) /uL Sodium 141 (137-145) mmol/L Potassium 4.4 (3.4-5.1) mmol/L Chloride 107 (98-107) mmol/L Carbon Dioxide 23 (22-32) mmol/L BUN 14 (9-20) mg/dL Creatinine 0.73 (0.66-1.25) mg/dL Estimated GFR > 60 (>60) mL/min BUN/Creatinine Ratio 19.2 (6-22) Glucose 95 (80-110) mg/dL Lactate 1.3 1.9 (0.7-2.1) mmol/L Calcium 8.9 (8.4-10.2) mg/dL Total Bilirubin 0.5 (0.2-1.3) mg/dL AST 22 (17-59) IU/L ALT 7 (<50) IU/L Alkaline Phosphatase 90 (38-126) U/L Total Protein 6.9 (6.3-8.2) g/dL Albumin 4.3 (3.5-5.0) g/dL Globulin 2.6 (1.7-4.1) g/dL Albumin/Globulin Ratio 1.7 (1.0-2.8) Imaging Data Extremity x-ray #1: Radiologist's Impression: [address] [address] XRay Report Signed Patient: Jordan Watson MR#: [id number] : 1950 Acct:[id number] Age/Sex: 74 / M Date of Service: 04/28/24 Loc: ED Accession Number: [id number] Procedure: XR foot LT min 3V Ordering Provider: Pepito Petersen MD PROCEDURE: XR FOOT LT MIN 3V INDICATIONS: redness swelling TECHNIQUE: 3 views of the foot were acquired. COMPARISON: None. FINDINGS: Bones: No fractures or dislocations. No suspicious bony lesions. No osseous erosions. No abnormal periosteal reaction. Prominent plantar calcaneal and retrocalcaneal enthesophytes. Soft tissues: No substantial tibiotalar joint effusion. Achilles tendon appears normal. Marked soft tissue swelling of the dorsal aspect of the left forefoot. No soft tissue gas. IMPRESSION: Marked soft tissue swelling of the dorsal aspect of the left forefoot without underlying osseous abnormalities. Prominent plantar calcaneal and retrocalcaneal enthesophytes. If there are persistent symptoms or clinical suspicion for pathology, then repeat radiographs or advanced imaging (CT or MRI) may be considered for further evaluation. Dictated by: Filipe Swanson M.D. on 04/29/2024 at 0:18 Approved by: Filipe Swanson M.D. on 04/29/2024 at 0:19 Extremity x-ray #2: Radiologist's Impression: [place] [address] XRay Report Signed Patient: Jordan Watson MR#: [id number] : 1950 Acct:[id number] Age/Sex: 74 / M Date of Service: 04/28/24 Loc: ED Accession Number: [id number] Procedure: XR tibia fibula LT 2V Ordering Provider: Pepito Petersen MD PROCEDURE: XR TIBIA FIBULA LT 2V INDICATIONS: left red leg TECHNIQUE: 2 views of the tibia and fibula were acquired. COMPARISON: None. FINDINGS: Bones: No fractures or dislocations. No suspicious bony lesions. Prominent plantar calcaneal and retrocalcaneal enthesophytes. Soft tissues: No suspicious soft tissue calcifications or masses. Diffuse soft tissue swelling of the left lower leg. IMPRESSION: Soft tissue swelling of the left lower leg. No underlying fracture or dislocation. If there are persistent symptoms or clinical suspicion for pathology, then repeat radiographs or advanced imaging (CT or MRI) may be considered for further evaluation. Dictated by: Filipe Swanson M.D. on 04/29/2024 at 0:19 Approved by: Filipe Swanson M.D. on 04/29/2024 at 0:20 MDM Narrative Medical decision making narrative: 74-year-old male with few days duration of left foot and foreleg anterior dorsal redness with swelling and pain. No injury recalled. History of cellulitis 4 months ago but in that event there was initial injury. DDx consider recurrent celllitis unilateral, consider DVT though swelling anterior less likely, doubt fasciitis, no trauma known to suggest hematoma, consider occult injury. White blood cell count normal, lactate pending. Ultrasound lower extremity from triage done, negative per sono tech report, await radiologist's report. History of tissue heart valve noted. Blood cultures requested, x-rays left foot and tib-fib requested. Some weeping clearfliud reported from anterior manuel. XRays negative for fracture FB and osteo changes. Blood cultures sent. IV vancomycin, IV ceftriaxone. Consider consultation with hospitalist regarding admission, patient prefers to be admitted, says he cannot walk due to the pain and swelling. Will contact hospitalist. [id number], case discussed with hospitalist Dr. Aj, accepts patient for admission Critical Care Time Critical Care Time Critical Care Time: Yes Total Critical Care Time: 35 Attestation: The high probability of a clinically significant, sudden or life threatening deterioration of the [musculoskeletal, dermatologic] system(s) required my full and direct attention, intervention and personal management. The aggregate critical care time was [35] minutes. This time is in addition to time spent performing reported procedures but includes the following: [x] Data Review and interpretation [x] Patient assessment and monitoring of vital signs [x] Documentation [x] Medication orders and management Discharge Plan Departure Patient Disposition: Admitted as Observation Clinical Impression: Cellulitis and abscess of left leg Admit Date/Time: 04/29/24 01:12 Admit Provider: Tyshawn Aj
--- NOTE | 2024-04-28 23:06 | DI.RAD.S_ITS ---
PROCEDURE: XR FOOT LT MIN 3V INDICATIONS: redness swelling TECHNIQUE: 3 views of the foot were acquired. COMPARISON: None. FINDINGS: Bones: No fractures or dislocations. No suspicious bony lesions. No osseous erosions. No abnormal periosteal reaction. Prominent plantar calcaneal and retrocalcaneal enthesophytes. Soft tissues: No substantial tibiotalar joint effusion. Achilles tendon appears normal. Marked soft tissue swelling of the dorsal aspect of the left forefoot. No soft tissue gas. IMPRESSION: Marked soft tissue swelling of the dorsal aspect of the left forefoot without underlying osseous abnormalities. Prominent plantar calcaneal and retrocalcaneal enthesophytes. If there are persistent symptoms or clinical suspicion for pathology, then repeat radiographs or advanced imaging (CT or MRI) may be considered for further evaluation. Dictated by: Filipe Swanson M.D. on 04/29/2024 at 0:18 Approved by: Filipe Swanson M.D. on 04/29/2024 at 0:19
--- NOTE | 2024-04-28 23:07 | DI.RAD.S_ITS ---
PROCEDURE: XR TIBIA FIBULA LT 2V INDICATIONS: left red leg TECHNIQUE: 2 views of the tibia and fibula were acquired. COMPARISON: None. FINDINGS: Bones: No fractures or dislocations. No suspicious bony lesions. Prominent plantar calcaneal and retrocalcaneal enthesophytes. Soft tissues: No suspicious soft tissue calcifications or masses. Diffuse soft tissue swelling of the left lower leg. IMPRESSION: Soft tissue swelling of the left lower leg. No underlying fracture or dislocation. If there are persistent symptoms or clinical suspicion for pathology, then repeat radiographs or advanced imaging (CT or MRI) may be considered for further evaluation. Dictated by: Filipe Swanson M.D. on 04/29/2024 at 0:19 Approved by: Filipe Swanson M.D. on 04/29/2024 at 0:20
[2024-04-28] MEDS: cefTRIAXone 1,000 MG in SODIUM CHLORIDE 0.9% 100 ML 200 MG IV (23:46)
[2024-04-28 23:56] LABS: Lactate (Lactic Acid) 1.9 mmol/L (0.7-2.1)
[2024-04-29] MEDS: VANCOMYCIN 1,500 MG/300 ML PIGGYBACK 200 MG IV ×2 (00:18→11:24)
[2024-04-29 01:45] VITALS: BP 130/61; PULSE 61; RESP 17; TEMP 36.1; O2SAT 95
[2024-04-29] MEDS: SODIUM CHLORIDE 0.9% 1,000 ML 100 ML IV (02:01)
[2024-04-29 02:11] VITALS: BMI 36.6
[2024-04-29] MEDS: TRAZODONE 50 MG TABLET 75 MG PO ×2 (02:56→20:53)
[2024-04-29 04:00] VITALS: BP 128/68; PULSE 73; RESP 16; TEMP 35.9; O2SAT 94
[2024-04-29 04:02] LABS: MRSA (Nasal) PCR NOT DETECTED (Not Detect)
--- NOTE | 2024-04-29 04:15 | PM.HP.1 ---
History of Present Illness History of Present Illness Chief complaint: leg swelling and painful Narrative: 74 years old male with history of gout, GERD, obesity, CAD, hyperlipidemia, hypertension, diabetes mellitus type 2, Parkinson's disease presented to the ER for redness, tenderness and swelling of his left lower extremities in the last week. Patient has a history of left leg cellulitis 4 months ago treated with antibiotics. Denies any leg injury. The patient was given vancomycin and ceftriaxone IV in the ED. He had ultrasound lower extremities for rule out DVT and it was negative. X-ray was negative for osteomyelitis. Laboratory was unremarkable. MRSA was negative. [facility]LY [facility] Medical History Gout (~1987) GERD (gastroesophageal reflux disease) Obesity (BMI 30-39.9) Ischemic heart disease Type 2 diabetes mellitus Hyperlipidemia associated with type 2 diabetes mellitus Hypertension Primary insomnia Snoring (~1987) Surgical History S/P AVR (aortic valve replacement) (~2014) Social History (Updated 07/02/18 @ 17:28 by WILL Garcia) marital status: details: 2 (adopted) adult children, each with mental illness/special needs number of children: 2 household members: spouse lives independently: Yes housing: house pets and animals: Yes education level: college occupational status: employed 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 Smoking Status: Former smoker alcohol intake: former substance use type: does not use Meds Home Medications and Allergies Home Medications Medication Instructions Recorded Confirmed Type furosemide 40 mg tablet (Lasix) 40 mg PO DAILY #10 tabs 12/28/23 02/25/24 Rx allopurinol 300 mg tablet 300 mg PO DAILY 02/25/24 02/25/24 History ascorbic acid (vitamin C) 500 mg mg PO PRN 02/25/24 02/25/24 History capsule aspirin 81 mg chewable tablet 81 mg PO DAILY 02/25/24 02/25/24 History atorvastatin 10 mg tablet (Lipitor) 5 mg PO BEDTIME PRN 02/25/24 02/25/24 History capsaicin 0.025 % topical cream 1 applic topical QID 02/25/24 02/25/24 History carbidopa 25 mg-levodopa 100 mg 2 tab PO TID 02/25/24 02/25/24 History disintegrating tablet carbidopa ER 50 mg-levodopa 200 mg 1 tab PO BEDTIME 02/25/24 02/25/24 History tablet,extended release carvedilol 6.25 mg tablet (Coreg) 6.25 mg PO BID 02/25/24 02/25/24 History coenzyme Q10 200 mg/gram oral mg PO 02/25/24 02/25/24 History powder (H2Q CoQ10) fluticasone propionate 50 2 spray intranasal DAILY 02/25/24 02/25/24 History mcg/actuation nasal spray,suspension glipizide 5 mg tablet 5 mg PO DAILY 02/25/24 02/25/24 History losartan 50 mg tablet (Cozaar) 50 mg PO DAILY 02/25/24 02/25/24 History mecobalamin (vitamin B12) 2,500 mcg PO 02/25/24 02/25/24 History mcg chewable tablet metformin 1,000 mg tablet 1,000 mg PO BID 02/25/24 02/25/24 History multivitamin 1 tab PO DAILY 02/25/24 02/25/24 History omeprazole 20 mg capsule,delayed 20 mg PO DAILY 02/25/24 02/25/24 History release trazodone 50 mg tablet 75 mg PO BEDTIME PRN 02/25/24 02/25/24 History venlafaxine 75 mg capsule,extended 75 mg PO DAILY 02/25/24 02/25/24 History release 24 hr Allergies Allergy/AdvReac Type Severity Reaction Status Date / Time Penicillins [PENICILLINS] Allergy Severe FAINTING Verified 02/25/24 12:27 Sulfa (Sulfonamide Allergy Severe swelling Verified 02/25/24 12:27 Antibiotics) [SULFA (SULFONAMIDE ANTIBIOTICS)] strawberry Allergy Rash Verified 04/28/24 16:40 Review of Systems Review of Systems ROS: Yes All systems reviewed with the patient and are negative except as otherwise documented Constitutional Constitutional: Reports as per HPI and Reports system reviewed and no additional complaints, except as documented Eyes Eyes: Reports as per HPI and Reports system reviewed and no additional complaints, except as documented ENT Ears, Nose, Mouth, and Throat: Yes as per HPI and Yes system reviewed and no additional complaints, except as documented Cardiovascular Cardiovascular: Reports system reviewed and no additional complaints, except as documented Respiratory Respiratory: Reports system reviewed and no additional complaints, except as documented Gastrointestinal Gastrointestinal: Reports system reviewed and no additional complaints, except as documented Genitourinary Genitourinary: Reports system reviewed and no additional complaints, except as documented Musculoskeletal Musculoskeletal: Reports system reviewed and no additional complaints, except as documented, Reports abnormal gait and Reports numbness Neurologic Neurologic: Reports system reviewed and no additional complaints, except as documented, Reports abnormal gait, Reports confusion and Reports numbness Psychiatric Psychiatric: Reports system reviewed and no additional complaints, except as documented and Reports confusion Exam Vital Signs (past 8 hours): - 04/28/24 20:30 04/28/24 20:30 04/29/24 01:45 Temperature 96.9 F L Pulse Rate 56 L 61 Respiratory Rate 18 17 Blood Pressure 149/73 H 130/61 Pulse Oximetry 97 95 Oxygen Flow Rate 0 04/29/24 04:00 Temperature 96.6 F L Pulse Rate 73 Respiratory Rate 16 Blood Pressure 128/68 Pulse Oximetry 94 Oxygen Flow Rate 0 Oxygen Delivery Method Room Air Oxygen Flow Rate 0 Const General: cooperative, comfortable and well developed Orientation: alert and oriented x3 HENID Head: normal to inspection, normocephalic and atraumatic Face and sinus: normal facial exam Mouth: oral mucosae normal and moist mucous membranes Throat: posterior oropharynx normal Eyes General: appearance normal, both eyes and all related structures Pupils: PERRL EOM: EOM intact bilaterally Neck Neck: normal visual inspection and full ROM Chest Chest: normal inspection of the chest Resp Effort & Inspection: normal respiratory effort and able to speak in complete sentences Auscultation: clear to auscultation bilaterally Cardio Palpation: normal PMI Rate: regular rate Rhythm: regular rhythm Heart Sounds: S1 normal and S2 normal GI Inspection: normal to inspection Palpation: soft and no hepatosplenomegaly Auscultation: normal bowel sounds Skin General: no rashes or lesions noted Lesions: no lesions Rashes: no rashes Trauma: no lacerations or abrasions Neuro General: patient alert, patient awake, patient oriented x3 and no focal motor deficits Cranial Nerves: CN's II-XI intact bilaterally Cognition: normal cognition Speech: speech normal Gait: normal gait Motor: muscle tone normal throughout Sensory Exam: no sensory deficits noted Extrem General: full ROM and no calf tenderness Psych Appearance: grossly normal Mental Status: mental status grossly normal Speech and Movement: speech and movement normal Objective Labs 04/28/24 19:42 04/28/24 19:42 Labs: Laboratory Results - last 24 hr 04/28/24 04/28/24 04/29/24 19:42 21:34 02:30 WBC 11.0 RBC 4.62 Hgb 13.6 Hct 41.5 MCV 89.8 MCH 29.4 MCHC 32.8 RDW 14.0 Plt Count 237 Neut % (Auto) 72.5 Lymph % (Auto) 15.9 L [place] % (Auto) 9.2 Eos % (Auto) 1.6 L Baso % (Auto) 0.8 Neut # (Auto) 8000 H Lymph # (Auto) 1800 [place] # (Auto) 1000 H Eos # (Auto) 200 Baso # (Auto) 100 Sodium 141 Potassium 4.4 Chloride 107 Carbon Dioxide 23 BUN 14 Creatinine 0.73 Estimated GFR > 60 BUN/Creatinine Ratio 19.2 Glucose 95 Lactate 1.3 1.9 Calcium 8.9 Total Bilirubin 0.5 AST 22 ALT 7 Alkaline Phosphatase 90 Total Protein 6.9 Albumin 4.3 Globulin 2.6 Albumin/Globulin Ratio 1.7 Nasal Screen MRSA (PCR) Not detected Assessment & Plan Assessment & Plan narrative: Left lower extremity cellulitis -Antibiotics of Vancomycin, ceftriaxone, -Blood cultures times 2, wound cultures, wound care. -Elevate the affected area/limb -IV fluids -Pain medications when necessary, Gout. Restart allopurinol Hyperlipidemia. Restart atorvastatin. Parkinson's disease. Restart carbidopa CAD. Restart aspirin, statins and carvedilol Hypertension. Restart losartan. CHF. Restart Lasix, losartan, aspirin and metoprolol. Diabetes mellitus type 2, [id number]. Restart glipizide. Hold metformin during the hospital stay. ADA diet, SSI, monitor blood sugar ACHS GERD. Restart omeprazole. Depression. Restart venlafaxine. Time-Based Coding :: [TOTAL MINUTES] spent with patient and on the chart (including review of chart, obtaining history, exam, reviewing outside data, placing orders, documenting exam and treatment plan, and counseling patient) on [DATE]. Quality VTE Deep Vein Thrombosis/Pulmonary Embolism Present on Admission: No MIPS - Admit I confirm the patient?s Advance Care Plan is present, Code status is documented, Surrogate decision maker is in patient?s record [If Yes, STOP here]: Yes MIPS - Meds 'Current medications' to include all prescriptions, [id number] products, herbals, cannabis/cannabidiol products, and vitamin/mineral/dietary (nutritional) supplements. I have utilized all available resources to obtain, update, or review the patient?s current medications. [If Yes, STOP here]: Yes
[2024-04-29 08:00] VITALS: BP 175/89; PULSE 62; RESP 14; TEMP 36.6; O2SAT 97
--- NOTE | 2024-04-29 08:27 | P.HP_ITS ---
History of Present Illness History of Present Illness Date Patient Seen: 04/29/24 Chief complaint: leg swelling and painful Narrative: From night doctor: 74 years old male with history of gout, GERD, obesity, CAD, hyperlipidemia, hypertension, diabetes mellitus type 2, Parkinson's disease presented to the ER for redness, tenderness and swelling of his left lower extremities in the last week. Patient has a history of left leg cellulitis 4 months ago treated with antibiotics. Denies any leg injury. The patient was given vancomycin and ceftriaxone IV in the ED. He had ultrasound lower extremities for rule out DVT and it was negative. X-ray was negative for osteomyelitis. Laboratory was unremarkable. MRSA was negative. Additional information: He was history of chronic leg edema secondary to venous insufficiency. He did have an aortic valve replacement in 2013 but his most recent echo reveals ongoing good cardiac function. He was done well overnight with some improvement of the erythema of the left leg. No recent fevers, or chills. No pain issues. He does not use compression stockings currently because of logistic difficulty placing these. He denies any orthopnea or dyspnea with exertion. 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 Smoking Status: Former smoker alcohol intake: former substance use type: does not use Meds Home Medications and Allergies Home Medications Medication Instructions Recorded Confirmed Type furosemide 40 mg tablet (Lasix) 40 mg PO DAILY #10 tabs 12/28/23 04/29/24 Rx allopurinol 300 mg tablet 300 mg PO DAILY 02/25/24 04/29/24 History ascorbic acid (vitamin C) 500 mg 500 mg PO DAILY 02/25/24 04/29/24 History capsule aspirin 81 mg chewable tablet 81 mg PO DAILY 02/25/24 04/29/24 History atorvastatin 10 mg tablet (Lipitor) 5 mg PO BEDTIME 02/25/24 04/29/24 History capsaicin 0.025 % topical cream 1 applic topical QID 02/25/24 04/29/24 History carbidopa 25 mg-levodopa 100 mg 2 tab PO TID 02/25/24 04/29/24 History disintegrating tablet carbidopa ER 50 mg-levodopa 200 mg 1 tab PO BEDTIME 02/25/24 04/29/24 History tablet,extended release carvedilol 6.25 mg tablet (Coreg) 6.25 mg PO BID 02/25/24 04/29/24 History fluticasone propionate 50 2 spray intranasal DAILY 02/25/24 04/29/24 History mcg/actuation nasal spray,suspension losartan 50 mg tablet (Cozaar) 50 mg PO DAILY 02/25/24 04/29/24 History mecobalamin (vitamin B12) 2,500 2,500 mcg PO DAILY 02/25/24 04/29/24 History mcg chewable tablet multivitamin 1 tab PO DAILY 02/25/24 04/29/24 History omeprazole 20 mg capsule,delayed 20 mg PO DAILY PRN Heartburn 02/25/24 02/25/24 History release trazodone 50 mg tablet 75 mg PO BEDTIME PRN Insomnia 02/25/24 04/29/24 History venlafaxine 75 mg capsule,extended 75 mg PO DAILY 02/25/24 04/29/24 History release 24 hr glipizide 5 mg tablet, extended 5 mg PO DAILY 04/29/24 04/29/24 History release 24 hr metformin 500 mg tablet,extended 1,000 mg PO BID 04/29/24 04/29/24 History release 24 hr pregabalin 150 mg capsule 150 mg PO TID 04/29/24 04/29/24 History tamsulosin 0.4 mg capsule 0.4 mg PO DAILY 04/29/24 04/29/24 History Allergies Allergy/AdvReac Type Severity Reaction Status Date / Time Penicillins [PENICILLINS] Allergy Severe FAINTING Verified 02/25/24 12:27 Sulfa (Sulfonamide Allergy Severe swelling Verified 02/25/24 12:27 Antibiotics) [SULFA (SULFONAMIDE ANTIBIOTICS)] strawberry Allergy Rash Verified 04/28/24 16:40 Review of Systems Review of Systems Narrative: All else reviewed and otherwise unremarkable except as noted in the history and physical. Exam Vital Signs (past 8 hours): - 04/29/24 01:45 04/29/24 04:00 Temperature 96.9 F L 96.6 F L Pulse Rate 61 73 Respiratory Rate 17 16 Blood Pressure 130/61 128/68 Pulse Oximetry 95 94 Oxygen Flow Rate 0 0 Oxygen Delivery Method Room Air Oxygen Flow Rate 0 Narrative Exam Narrative: NAD, alert and oriented, fluent speech, calm. Normocephalic skull, EOMI, anicteric sclera, symmetric pupils. Oropharynx unremarkable, no droop. Neck supple, midline trachea, no adenopathy. Lungs clear, normal rate and effort. Heart regular, no murmur gallop or rub. Abdomen is soft, non distended and non tender. Extremities are notable for gross bilateral edema left greater than right, the left leg is red from [id number] to the ankle. There is no fluctuance. It is blanchable. Skin is free of rash or lesions. Joints are not swollen or deformed. Judgment appears to be normal. Objective Imaging Multiple studies:: Radiologist's impression: Tib-fib x-ray: Soft tissue swelling of the left lower leg. No underlying fracture or dislocation. If there are persistent symptoms or clinical suspicion for pathology, then repeat radiographs or advanced imaging (CT or MRI) may be considered for further evaluation. Foot x-ray: Marked soft tissue swelling of the dorsal aspect of the left forefoot without underlying osseous abnormalities. Prominent plantar calcaneal and retrocalcaneal enthesophytes. If there are persistent symptoms or clinical suspicion for pathology, then repeat radiographs or advanced imaging (CT or MRI) may be considered for further evaluation. Venous vascular ultrasound: No findings of lower extremity deep venous thrombosis. Labs 04/28/24 19:42 04/29/24 08:48 Labs: Laboratory Results - last 24 hr 04/28/24 04/28/24 04/29/24 19:42 21:34 02:30 WBC 11.0 RBC 4.62 Hgb 13.6 Hct 41.5 MCV 89.8 MCH 29.4 MCHC 32.8 RDW 14.0 Plt Count 237 Neut % (Auto) 72.5 Lymph % (Auto) 15.9 L [place] % (Auto) 9.2 Eos % (Auto) 1.6 L Baso % (Auto) 0.8 Neut # (Auto) 8000 H Lymph # (Auto) 1800 [place] # (Auto) 1000 H Eos # (Auto) 200 Baso # (Auto) 100 Sodium 141 Potassium 4.4 Chloride 107 Carbon Dioxide 23 BUN 14 Creatinine 0.73 Estimated GFR > 60 BUN/Creatinine Ratio 19.2 Glucose 95 Lactate 1.3 1.9 Calcium 8.9 Total Bilirubin 0.5 AST 22 ALT 7 Alkaline Phosphatase 90 Total Protein 6.9 Albumin 4.3 Globulin 2.6 Albumin/Globulin Ratio 1.7 Nasal Screen MRSA (PCR) Not detected Assessment & Plan Assessment & Plan narrative: 1. Left lower extremity cellulitis, present on admission and active. -Antibiotics of Vancomycin, ceftriaxone, -Blood cultures times 2, wound cultures, wound care. -Elevate the affected area/limb 2. Gout, present on admission and active. -Restart allopurinol 3. Hyperlipidemia, present on admission and active. -Restart atorvastatin. 4. Parkinson's disease, present on admission and active. -Restart carbidopa 5. CAD, present on admission and active. -Restart aspirin, statins and carvedilol 6. Hypertension, present on admission and active. -Restart losartan. 7. CHF, present on admission and active. -Restart Lasix, losartan, aspirin and metoprolol. 8. Diabetes mellitus type 2, [id number], present on admission and active. -Restart glipizide. Hold metformin during the hospital stay. ADA diet, SSI, monitor blood sugar ACHS 9. GERD, present on admission and active. -Restart omeprazole. 10. Depression, present on admission and active. -Restart venlafaxine. Evaluated him in the morning after the night doctor place the initial order. He we will require a 2nd night of hospital level care in his appropriate for inpatient status. Full code. Time-Based Coding :: 30 min spent with patient and on the chart (including review of chart, obtaining history, exam, reviewing outside data, placing orders, documenting exam and treatment plan, and counseling patient) on 04/29. Quality VTE Deep Vein Thrombosis/Pulmonary Embolism Present on Admission: No MIPS - Admit I confirm the patient?s Advance Care Plan is present, Code status is documented, Surrogate decision maker is in patient?s record [If Yes, STOP here]: Yes [facility] - Meds 'Current medications' to include all prescriptions, [id number] products, herbals, cannabis/cannabidiol products, and vitamin/mineral/dietary (nutritional) supplements. I have utilized all available resources to obtain, update, or review the patient?s current medications. [If Yes, STOP here]: Yes
[2024-04-29 09:32] LABS: BUN Creatinine Ratio 15.4 (6-22); Blood Urea Nitrogen 10 mg/dL (9-20); Calcium 8.7 mg/dL (8.4-10.2); Carbon Dioxide 24 mmol/L (22-32); Chloride 108 mmol/L (98-107); Estimated Glomerular Filt Rate > 60 mL/min (>60); Glucose 104 mg/dL (80-110); HEMOLYSIS < 15 (0-50); Magnesium 1.9 mg/dL (1.6-2.3); Potassium 3.8 mmol/L (3.4-5.1); Sodium 141 mmol/L (137-145)
[2024-04-29] MEDS: ASPIRIN 81 MG CHEW TAB PO (09:39)
[2024-04-29] MEDS: LOSARTAN 50 MG TABLET PO (09:40)
[2024-04-29] MEDS: carvediloL 3.125 MG TABLET 6.25 MG PO ×2 (09:40→20:52)
[2024-04-29] MEDS: glipiZIDE 5 MG TABLET PO (09:40)
[2024-04-29] MEDS: VENLAFAXINE ER 75 MG CAP PO (09:40)
[2024-04-29] MEDS: allopurinoL 100 MG TABLET 300 MG PO (09:41)
[2024-04-29] MEDS: ENOXAPARIN 40 MG/0.4 ML SYRINGE SUBCUT (09:41)
[2024-04-29] MEDS: PANTOPRAZOLE DR 20 MG TABLET PO (09:41)
[2024-04-29] MEDS: SODIUM CHLORIDE 0.9% FLUSH 10 ML IV ×2 (09:42→20:53)
[2024-04-29] MEDS: CARBIDOPA-LEVODOPA 25/100 TABLET 2 EACH PO ×2 (09:49→14:48)
--- NOTE | 2024-04-29 10:15 | PT.IIE ---
Surgical History (Last Reviewed 04/29/24 @ 08:27 by Josh Simon MD) S/P AVR (aortic valve replacement) (~2014) Medical History (Last Reviewed 04/29/24 @ 08:27 by Josh Simon MD) GERD (gastroesophageal reflux disease) Gout (~1987) Hyperlipidemia associated with type 2 diabetes mellitus Hypertension Ischemic heart disease Obesity (BMI 30-39.9) Primary insomnia Snoring (~1987) Type 2 diabetes mellitus Physical Therapy Inpatient Evaluation/Re-Eval M1 PT/OT-IP Prior Functional Status Start: 04/29/24 12:55 Freq: NEEDED Status: Active Protocol: Document 04/29/24 10:15 AB (Rec: 04/29/24 12:59 AB [id number]) Medical Review Prior Functional Status Medical History Reviewed Yes Communication able to make needs known Mobility and Gait pt stated that he was modified independent with all mobilities and ambulation switching from quad cane/4WW/ crutches. pt still able to drive Activities of Daily Living and IADL's pt stated that spouse occasionally assists him with LB dressing Prior Functional Level (Other details) has h/o falls Social History Household Members spouse Living Arrangements House Number of Floors (Floors) Two Floors Number of Stairs To Enter/Railing? no steps from the garage; 8 steps L rail ascending + landin steps R rail ascending to main living area Home Environment High Toilet,Walk in Shower, Built-In Shower Seat Home Equipment Four Wheel Walker,Quad Cane, Crutches,Hand Held Shower Additional Social History Comment pt stated that his spoue will be able to assist him but limited since his spouse has her own medical issues M2 PT-IP Current Condition Start: 04/29/24 12:55 Freq: NEEDED Status: Active Protocol: Document 04/29/24 10:15 AB (Rec: 04/29/24 14:01 AB [id number]) Physical Therapy Current Condition Current Condition Evaluation Date 04/29/24 Treatment Diagnosis LLE cellulitis; difficulty in walking Onset Date 04/29/24 M3 PT-IP Subjective Start: 04/29/24 12:55 Freq: NEEDED Status: Active Protocol: Document 04/29/24 10:15 AB (Rec: 04/29/24 14:01 AB [id number]) Subjective Physical Therapy Visit Type Type Initial Evaluation Visit Start Time 10:15 Visit Stop Time 10:55 Number of INGOT WEIGHER Visits 0 Physical Therapy Visit Comments Patient Comments agreeable to do PT Therapy Pain Assessment Pain When Pain Assessed During Mobility Pain Present Pain Present Pain Reported Location Left lower leg Intensity 10 Scale Used Numeric (0 - 10) Pain Management Techniques Distraction,Modification of Treatment,Re-positioning, Timing of Activity with Medications M4 PT-IP Mobility and Gait Start: 04/29/24 12:55 Freq: NEEDED Status: Active Protocol: Document 04/29/24 10:15 AB (Rec: 04/29/24 14:01 AB [id number]) PT-Bed Mobility Assessment Supine to Sit Supine to Sit Minimal Assistance Scooting Scooting to Edge of Bed Maximum Assistance PT-Transfer Assessment Sit to and From Stand Sit to and from Stand Moderate Assistance,Maximum Assistance,1 Person Assistance ,Use of Upper Extremities Equipment Transfer Assistive Device Gait Belt,Front Wheeled Walker Orthotic/Prosthetic Devices or Brace: No Transfers Transfer Destination Toilet Transfer Technique ambulated Transfer Ability Level of Assist Minimal Assistance,Moderate Assistance,1 Person Assistance ,Use of Upper Extremities Comments Mobility Comments pt supine in bed and agreeable to do PT. obtained PLOF and home set up from pt. pt requesting to use the toilet. pt completed supine to sit min A and cues. pt able to sit on EOB. pt required max A to scoot to EOB. completed sit to stand x 3 attempts mod to max A and cues and pt ambulated to the toilet using FWW min to mod A and cues. presents with unsteady antalgic gait and c/o increase pain on LLE with weight bearing. pt can be impulsive. cued for safety. completed sit to stand from the toilet using grab bar mod A and cues and pt ambulated to the chair using FWW min to mod A and cues. pt agreed to stay up on the chair. positioned pt on the chair. call light and table placed within reach. Gait Assessment Gait Gait Assistance Required: Minimum Assistance,Moderate Assistance,1 Person Assist Distance (Feet) 10 Able to Maintain Weight Bearing Status No During Gait Assistive Devices Assistive Device Gait Belt,Front Wheeled Walker Orthotic/Prosthetic Devices or Brace: No Gait Deviations General Gait Pattern Antalgic,Ataxic,Decreased Stride Length,Decreased Feet Clearance Factors Limiting Gait Function Factors Limiting Gait Function Decreased Activity Tolerance, Decreased Strength,Difficulty Following Directions, Incoordination,Limited Range of Motion,Pain,Poor Balance, Poor Safety Awareness PT-Balance Assessment Sitting Balance and Reactions Static Sitting Balance Ability Good Dynamic Sitting Balance Ability Fair Standing Balance and Reactions Static Standing Balance Ability Poor Dynamic Standing Balance Ability Poor Device Used FWW M5 PT-IP Objective Assessments Start: 04/29/24 12:55 Freq: NEEDED Status: Active Protocol: Document 04/29/24 10:15 AB (Rec: 04/29/24 14:01 AB [id number]) Orientation Orientation/Cognition Level of Alertness Alert Orientation Name,Place,Situation Language Function Ability No Deficits Noted Safety Awareness Decreased Safety Awareness Memory Description No Deficits Noted Strength Lower Extremity Strength Assessment Left Impaired Knee 3+/5 Muscle Tone Muscle Tone WNL Yes M6 PT-IP Treatment Start: 04/29/24 12:55 Freq: NEEDED Status: Active Protocol: Document 04/29/24 10:15 AB (Rec: 04/29/24 14:01 AB [id number]) Physical Therapy Treatment Education Education Provided Safety M7 PT-IP Assessment and Plan Start: 04/29/24 12:55 Freq: NEEDED Status: Active Protocol: Document 04/29/24 10:15 AB (Rec: 04/29/24 14:01 AB [id number]) PT Summary Assessment and Plan Potential Rehabilitation Potential Fair Status of Condition at Evaluation Evolving Summary Impairments Pain,ROM,Strength,Balance, Coordination,Sensation,Tone, Cognition,Bed Mobility, Transfers,Gait,Activity Tolerance Assessment Summary pt is a 74 y/o M who is admitted for LLE cellulitis. pt c/o increase LLE pain with weight bearing affecting mobility and requiring mod to max for sit to stand and min to mod A for ambulation using FWW. pt also has dx of PD contributing to current mobility assistance level. pt stated that spouse will be able to assist him but also limited due to spouse's own medical issues. informed pt regarding SNF rehab but pt refuses. pt will require 29/04 assist and will require SNF rehab. pt aware of recommendation. also informed pt regarding use of FWW at this time and agreed. stated that he can borrow one from the [facility]. will continue to assess progress for safe d/c plan. Goals Bed Mobility Goal Standby Assistance Transfer Goal Standby Assistance,Front Wheeled Walker Gait Goal Standby Assistance,Front Wheel Walker Gait Distance 200 Other Goals improve bed mobility, transfers, ambulation using LRAD 300 ft mod i up/down 8 steps L rail ascending + 8 steps R rail ascending Days to Meet Goals 10 Frequency of Treatment Frequency Of Treatment Once a Day Other frequency or as tolerated Treatment Plan Physical Therapy Treatment Plan Bed Mobility Training,Transfer Training,Gait Training, Therapeutic Exercise,Balance Retraining,Discharge Planning, Hot or Cold Pack,Neuromuscular Re-ed,Coordination Retraining ,Manual Therapy Recommendations To Nursing Amount of Assist Needed 1 Person Assist Discharge Recommendations PT Discharge Recommendations Home with 29/04 Assist Available,Home Health,SNF Rehab Equipment Needed for Home Before FWW Discharge Transportation Needs at Discharge Private Vehicle,Wheelchair/ Cabulance
--- NOTE | 2024-04-29 14:30 | OT.IP.EVAL ---
Past Medical History (Last Reviewed 04/29/24 @ 08:27 by Josh Simon MD) GERD (gastroesophageal reflux disease) Gout (~1987) Hyperlipidemia associated with type 2 diabetes mellitus Hypertension Ischemic heart disease Obesity (BMI 30-39.9) Primary insomnia Snoring (~1987) Type 2 diabetes mellitus Surgical History (Last Reviewed 04/29/24 @ 08:27 by Josh Simon MD) S/P AVR (aortic valve replacement) (~2014) Occupational Therapy Inpatient Evaluation/Re-Eval M1 PT/OT-IP Prior Functional Status Start: 04/29/24 12:55 Freq: NEEDED Status: Active Protocol: Document 04/29/24 14:33 [facility] (Rec: 04/29/24 14:46 [facility] [id number]) Medical Review Prior Functional Status Medical History Reviewed Yes Communication able to make needs known Mobility and Gait pt stated that he was modified independent with all mobilities and ambulation switching from quad cane/4WW/ crutches. pt still able to drive Activities of Daily Living and IADL's pt stated that spouse occasionally assists him with LB dressing Prior Functional Level (Other details) has h/o falls Social History Household Members spouse Living Arrangements House Number of Floors (Floors) Two Floors Number of Stairs To Enter/Railing? no steps from the garage; 8 steps L rail ascending + landin steps R rail ascending to main living area Home Environment High Toilet,Walk in Shower, Built-In Shower Seat Home Equipment Four Wheel Walker,Quad Cane, Crutches,Hand Held Shower, Yam Curer Additional Social History Comment pt stated that his spouse will be able to assist him but limited since his spouse has her own medical issues M2 OT-IP Current Condition Start: 04/29/24 14:33 Freq: Status: Active Protocol: Document 04/29/24 14:33 [facility] (Rec: 04/29/24 14:46 [facility] [id number]) Occupational Therapy Current Condition Current Condition Evaluation Date 04/29/24 Treatment Diagnosis LLE cellulitis Diagnosis Onset Date 04/29/24 M3 OT- IP Subjective and Pain Start: 04/29/24 14:33 Freq: Status: Active Protocol: Document 04/29/24 14:33 [facility] (Rec: 04/29/24 14:46 [facility] [id number]) OT- Subjective Occupational Therapy Visit Type Type Initial Evaluation Visit Start Time 14:05 Visit Stop Time 14:25 Occupational Therapy Visit Comments Patient Comments Pt agreed to get up to brush his teeth. Patient/Caregiver Goals TO go home. OT Pain Assessment Pain When Pain Assessed At Rest Pain Present Pain Present Pain Reported Location Left lower leg Description Throbbing Pain Behaviors Guarding,Wincing M4 OT- IP ADL's Start: 04/29/24 14:33 Freq: Status: Active Protocol: Document 04/29/24 14:33 [facility] (Rec: 04/29/24 14:46 [facility] [id number]) OT WBL-Khwy-Eositvn General Evaluation Self-Feeding Ability Independent OT ADL-Grooming General Evaluation Grooming Ability Independent OT ADL-Oral Care General Eval Oral Care Ability Independent Comments Oral Care Comments While standing with FWW in front of the sink. OT ADL-Dressing Comments OT Dressing Comments AT this time due to swelling of Lfoot>Rfoot will need assist for his . OT ADL-Toileting Comments OT Toileting Comments Pt not having to go. Pt states has been using the urinal. OT ADL-Bathing Comments OT Bathing Comments Pt will greatly benefit from a shower chair. M5 OT- IP IADL's Start: 04/29/24 14:33 Freq: Status: Active Protocol: Document 04/29/24 14:33 [facility] (Rec: 04/29/24 14:46 [facility] [id number]) OT-Instrumental Activities of Daily Living Deficits IADL Deficits Identified Deficits Home Safety Awareness Awareness of Need for Assistance at Home Good Awareness Ability to Problem Solve Emergency Able to Problem Solve Situations Medication Management Medication Management Comments Pt states does his own medications. Money Management Money Management Comments Pt's does the bills. Meal Preparation Meal Preparation Caregiver Provides Assist Yoker Machine Operator Yoker Machine Operator Caregiver Provides Assist M6 OT- IP Functional Cognition Start: 04/29/24 14:33 Freq: Status: Active Protocol: Document 04/29/24 14:33 [facility] (Rec: 04/29/24 14:46 [facility] [id number]) Cognitive Factors Limiting Selfcare Function Cognitive Ability Level of Alertness Alert Patient Orientation Name,Age,Birthday,Month,Date, Year,Day of Week,Place, Situation Attention Span Ability Capable of Focused Attention, Capable of Sustained Attention Ability to Follow Commands Able to Follow One Step Commands Safety Awareness Underestimates Need for Assistance Cognitive Comments Cognitive Assessment Comments Pt able to follow commands for ADL and mobility needs. MIN vc for FWW safety. OT- Vision and Hearing OT- Hearing Assessment OT- Hearing Assessment WFL OT- Vision Assessment Visual Acuity Glasses For Reading Vision Assessment Comments Pt states has depth perception issues, educated on having color contrast and good lighting. M7 OT- IP Mobility and Balance Start: 04/29/24 14:33 Freq: Status: Active Protocol: Document 04/29/24 14:33 [facility] (Rec: 04/29/24 14:46 [facility] [id number]) OT- Bed Mobility Assessment Sit to Supine Sit to Supine Assist Standby Assistance Scooting Scooting to Edge of Bed Standby Assistance OT-Transfer Assessment Sit to and From Stand Sit to and from Stand Contact Guard Assistance Transfers Transfer Ability Contact Guard Assistance, Minimal Assistance Technique Transfer Destination Bed Transfer Technique Stand Step Pivot Devices Transfer Assistive Devices Gait Belt,Front Wheeled Walker ,4 Wheeled Walker Comments Mobility Comments CGA to stand from the bed, pt usually sleeps in his lift chair at home. CGA with FWW and trial of 4ww and needing YANDY as unsteady on his feet. Pt states to just excelsior picker a FWW from [facility]. FWW works better at this time so able to push on the FWW to unweight his LLE due to his pain. OT- Balance Assessment Sitting Balance and Reactions Static Sitting Balance Ability Good Dynamic Sitting Balance Ability Good Standing Balance and Reactions Static Standing Balance Ability Fair Dynamic Standing Balance Ability Fair M8 OT- IP Objective Assessments Start: 04/29/24 14:33 Freq: Status: Active Protocol: Document 04/29/24 14:33 [facility] (Rec: 04/29/24 14:46 [facility] [id number]) OT Gross Range of Motion Upper Extremity Range of Motion Assessment Left Impaired ROM Impairments Due to recent fall, pt at [facility] has limited end ROM is certain positions. OT Strength Upper Extremity Strength Assessment Left Impaired OT Sensation Assessment Edema Edema Comments Pt's left foot swollen much greater than his right foot. ABle to assist pt to raise the foot of the bed higher to elevate his feet. M9 OT- IP Assessment and Plan Start: 04/29/24 14:33 Freq: Status: Active Protocol: Document 04/29/24 14:33 [facility] (Rec: 04/29/24 14:46 [facility] [id number]) OT Summary Assessment and Plan Potential Rehabilitation Potential Good Analytic Complexity at Evaluation Moderate Summary OT Impairments Pain,Strength,Balance, Functional Mobility,Dressing, Toileting,Bathing,Toilet Transfers,Shower Transfers, Activity Tolerance Progress Towards Goals Progressing Toward Goals Assessment Summary Pt MOD complexity and main barriers are pain, steps, and will need more assist at home with ADL and IADL needs. Pt will benefit from a FWW at this time as unsteady on his feet and needing CGA. Pt insistent of not going to skilled rehab and that his to assist and either his daughter or son to come and assist them. Pt to go home with assist and outpt PT versus home health. Goals Dressing Goal Minimal Assistance Toileting Goal Independent Bathing Goal Minimal Assistance Toilet Transfer Goal Independent Shower Transfer Goal Standby Assistance Days to Meet Goals 5 Frequency of Treatment Other frequency 5x/week Treatment Plan OT Treatment Plan ADL Training,Functional Mobility,Patient/Family Education,Discharge Planning Other Treatment Recommendations and Next YANDY for LB dressing Treatment Focus Discharge Recommendations OT Discharge Recommendations Home with Assistance,Home Health,Outpatient PT Home Equipment Needs shower chair, grab bar Transportation Needs at Discharge Private Vehicle
--- NOTE | 2024-04-29 15:16 | CM.DANOTE ---
Patient is a 74 yo male who was admitted OBS Status on 04/29/24 for Leg Cellulitis. Pt has [facility] for insurance and his PCP is Dr. Ynes Laird at [facility]. EMR was reviewed. Per MD, pt with hx of DM and Parkinsons and admitted for leg cellulitis and started on IV-Abx and pain control. Pt has no hx of admissions here. Per PT/OT, feel pt would benefit from SNF but pt refusing and recommending home with 29/04 assist and FWW and HH. SW met briefly bedside with pt and explained role and he confirms he lives in [place] with his who has some of her own health issues and pt is somewhat impulsive but states he has been independent with ADLs but spouse can help a little if needed and pt has not been using DME for ambulation and still drives and pt plans to have spouse burr picker FWW at [facility] for home use. Pt confirms he is refusing SNF at this time. SW discussed HH services and frequency and pt states he will think about it and consider HH vs outpt PT. Pt states he has Dtr and son who can likely assist if needed as well and preference is home at discharge. Plan: SW to follow closely for further PT/OT and pt consideration of HH to determine home with family assist and HH vs outpt PT. CHERRY Bledsoe Discharge Planning/Care Management CM Discharge Assessment Start: 04/29/24 15:09 Freq: Status: Active Protocol: Document 04/29/24 15:09 BF (Rec: 04/29/24 15:14 BF [id number]) Discharge Planning Assessment Assigned Kiln Cleaner CHERRY Frank DPOA/Assigned Designee Name spouse Ana Contact Information [phone] Advance Directives? No Advance Directives on File No History Provided By Patient,Medical Record Has Patient been admitted in last 30 No days? Prior Living Arrangements House Household Members spouse Type of transporation used prior to Drives own vehicle admit Independent with ADL's Yes Is patient alert and oriented? Yes Needs Assistance With Managing Medications,Home Chores / Shopping Caregiver for Another No DME Already Rented / Owned FWW / Walker Comment picking up walker from [facility] Patient/Family Preference Home with Home Health,OP PT Therapy Comment outpt vs HH Barriers to Discharge No Discharge Plan Home with Home Health [facility] Physical Therapy Transportation Arrangement family to transport at d/c Additional Comment Pt deciding if he wants HH referral Medicare Choice List Provided Yes Medicare choice list reviewed on patient electronic tablet with SNF/HH Preference pt considering HH Whiteboard Updated in Patient Room with Yes name and ext. # of Kiln Cleaner Review Status In Process Please Provide Date Initial DC 04/29/24 Assessment Was Performed Next Review Type Continued Stay Review
[2024-04-29 16:00] VITALS: BP 141/76; PULSE 71; RESP 16; TEMP 36.8; O2SAT 97
[2024-04-29 20:52] VITALS: BP 141/76; PULSE 71
[2024-04-29] MEDS: ATORVASTATIN 20 MG TABLET 5 MG PO (20:52)
[2024-04-29] MEDS: CARBIDOPA-LEVODOPA ER 50/200 TABLET 1 EACH PO (20:52)
[2024-04-29 20:56] VITALS: BP 163/73; PULSE 80; RESP 17; TEMP 36.2; O2SAT 98
[2024-04-29] MEDS: cefTRIAXone 1,000 MG in SODIUM CHLORIDE 0.9% 100 ML 200 MG IV (22:53)
[2024-04-30] MEDS: VANCOMYCIN 1,500 MG/300 ML PIGGYBACK 200 MG IV (00:31)
[2024-04-30 08:00] VITALS: BP 155/76; PULSE 72; RESP 16; TEMP 36.2; O2SAT 99
[2024-04-30] MEDS: ASPIRIN 81 MG CHEW TAB PO (08:09)
[2024-04-30] MEDS: carvediloL 3.125 MG TABLET 6.25 MG PO ×2 (08:09→20:53)
[2024-04-30] MEDS: glipiZIDE 5 MG TABLET PO (08:09)
[2024-04-30] MEDS: VENLAFAXINE ER 75 MG CAP PO (08:09)
[2024-04-30] MEDS: LOSARTAN 50 MG TABLET PO (08:09)
[2024-04-30] MEDS: PANTOPRAZOLE DR 20 MG TABLET PO (08:09)
[2024-04-30] MEDS: SODIUM CHLORIDE 0.9% FLUSH 10 ML IV ×2 (08:10→20:55)
[2024-04-30] MEDS: ENOXAPARIN 40 MG/0.4 ML SYRINGE SUBCUT (08:10)
[2024-04-30] MEDS: allopurinoL 100 MG TABLET 300 MG PO (08:10)
[2024-04-30] MEDS: CARBIDOPA-LEVODOPA 25/100 TABLET 2 EACH PO ×2 (08:14→14:03)
--- NOTE | 2024-04-30 08:14 | PT-OP ANOTE ---
Pt declined PT at arrival 0814. He reports his feet really bothering him and just receiving medication by nursing when arrived. Pt asked that PT come back later, understands has 16 stairs would like to assess before go home.
--- NOTE | 2024-04-30 10:25 | PM.PN.1 ---
Subjective Subjective Interval history: From H&P: From night doctor: 74 years old male with history of gout, GERD, obesity, CAD, hyperlipidemia, hypertension, diabetes mellitus type 2, Parkinson's disease presented to the ER for redness, tenderness and swelling of his left lower extremities in the last week. Patient has a history of left leg cellulitis 4 months ago treated with antibiotics. Denies any leg injury. The patient was given vancomycin and ceftriaxone IV in the ED. He had ultrasound lower extremities for rule out DVT and it was negative. X-ray was negative for osteomyelitis. Laboratory was unremarkable. MRSA was negative. Additional information: He was history of chronic leg edema secondary to venous insufficiency. He did have an aortic valve replacement in 2013 but his most recent echo reveals ongoing good cardiac function. He was done well overnight with some improvement of the erythema of the left leg. No recent fevers, or chills. No pain issues. He does not use compression stockings currently because of logistic difficulty placing these. He denies any orthopnea or dyspnea with exertion. S: The leg is improving, but still is somewhat red he does have chronic leg edema which is apparently related to venous insufficiency. His left leg is more swollen in the right. He denies any dyspnea. He has mild pain with the leg. Exam Vital Signs (past 8 hours): - 04/30/24 08:00 Temperature 97.2 F L Pulse Rate 72 Respiratory Rate 16 Blood Pressure 155/76 H Pulse Oximetry 99 Oxygen Flow Rate 0 Oxygen Delivery Method Room Air Oxygen Flow Rate 0 Narrative Exam Narrative: NAD, alert and oriented. Fluent speech. Lungs are clear, normal rate and effort. Heart is regular, no murmur gallop or rub. Abdomen is soft, non distended. Extremities: Both legs are swollen, left greater than the right. The left is still somewhat light red in color. Less tender to touch. Objective Labs 04/28/24 19:42 04/29/24 08:48 [facility] Medical History Gout (~1987) GERD (gastroesophageal reflux disease) Obesity (BMI 30-39.9) Ischemic heart disease Type 2 diabetes mellitus Hyperlipidemia associated with type 2 diabetes mellitus Hypertension Primary insomnia Snoring (~1987) Surgical History S/P AVR (aortic valve replacement) (~2014) Social History marital status: details: 2 (adopted) adult children, each with mental illness/special needs number of children: 2 household members: spouse lives independently: Yes housing: house pets and animals: Yes education level: college occupational status: employed 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 Left lower extremity cellulitis, present on admission and active. -Antibiotics of Vancomycin, ceftriaxone, -Blood cultures times 2, wound cultures, wound care. -Elevate the affected area/limb 2. Gout, present on admission and active. -Restart allopurinol 3. Hyperlipidemia, present on admission and active. -Restart atorvastatin. 4. Parkinson's disease, present on admission and active. -Restart carbidopa 5. CAD, present on admission and active. -Restart aspirin, statins and carvedilol 6. Hypertension, present on admission and active. -Restart losartan. 7. CHF, present on admission and active. -Restart Lasix, losartan, aspirin and metoprolol. 8. Diabetes mellitus type 2, vis-waguarx-cbcgzmdel, present on admission and active. -Restart glipizide. Hold metformin during the hospital stay. ADA diet, SSI, monitor blood sugar ACHS 9. GERD, present on admission and active. -Restart omeprazole. 10. Depression, present on admission and active. -Restart venlafaxine. PLAN: -continue IV antibiotics for an additional night. -leg elevation. -monitor glucose, these have been stable. -anticipate discharge home on oral antibiotics tomorrow, May 01. Time-Based Coding :: 25 min spent with patient and on the chart (including review of chart, obtaining history, exam, reviewing outside data, placing orders, documenting exam and treatment plan, and counseling patient) on 04/30. Quality VTE Deep Vein Thrombosis/Pulmonary Embolism Present on Admission: No
[2024-04-30 12:48] LABS: BUN Creatinine Ratio 13.5 (6-22); Blood Urea Nitrogen 10 mg/dL (9-20); Calcium 9.7 mg/dL (8.4-10.2); Carbon Dioxide 27 mmol/L (22-32); Chloride 107 mmol/L (98-107); Estimated Glomerular Filt Rate > 60 mL/min (>60); Glucose 63 mg/dL (80-110); HEMOLYSIS < 15 (0-50); Magnesium 1.9 mg/dL (1.6-2.3); Potassium 4.2 mmol/L (3.4-5.1); Sodium 143 mmol/L (137-145)
[2024-04-30 12:51] LABS: Vancomycin Trough 9.5 ug/mL (10-20)
[2024-04-30] MEDS: VANCOMYCIN 2,000 MG/400 ML PIGGYBACK 200 MG IV (13:26)
--- NOTE | 2024-04-30 14:45 | PT-IP ANOTE ---
Pt refuses PT this afternoon.
[2024-04-30 16:00] VITALS: BP 165/85; PULSE 68; RESP 16; TEMP 36.2; O2SAT 97
--- NOTE | 2024-04-30 16:00 | OT.IP.TRT ---
Occupational Therapy Treatment Note M2 OT-IP Current Condition Start: 04/29/24 14:33 Freq: Status: Active Protocol: Document 04/29/24 14:33 [facility] (Rec: 04/29/24 14:46 [facility] [id number]) Occupational Therapy Current Condition Current Condition Evaluation Date 04/29/24 Treatment Diagnosis LLE cellulitis Diagnosis Onset Date 04/29/24 M3 OT- IP Subjective and Pain Start: 04/29/24 14:33 Freq: Status: Active Protocol: Document 04/30/24 16:18 [facility] (Rec: 04/30/24 16:26 [facility] [id number]) OT- Subjective Occupational Therapy Visit Type Type Treatment Note Visit Start Time 15:36 Visit Stop Time 16:00 Occupational Therapy Visit Comments Patient Comments Pt in the bathroom when OT came to see pt. Patient/Caregiver Goals TO go home. OT Pain Assessment Pain When Pain Assessed At Rest Pain Present Pain Present Pain Reported M4 OT- IP ADL's Start: 04/29/24 14:33 Freq: Status: Active Protocol: Document 04/30/24 16:18 [facility] (Rec: 04/30/24 16:26 [facility] [id number]) OT [id number] General Evaluation Self-Feeding Ability Independent OT ADL-Grooming General Evaluation Grooming Ability Independent OT ADL-Oral Care General Eval Oral Care Ability Independent OT ADL-Dressing General Eval Lower Body Dressing Ability Maximum Assistance Comments OT Dressing Comments MAXA to assist to get the brief over his feet due to pain and swelling. Pt insists that his to assist him. OT ADL-Toileting General Evaluation Toileting Ability Minimal Assistance Areas Needing Assistance Manage Clothing OT ADL-Bathing Comments OT Bathing Comments Pt will greatly benefit from a shower chair. M5 OT- IP IADL's Start: 04/29/24 14:33 Freq: Status: Active Protocol: Document 04/29/24 14:33 [facility] (Rec: 04/29/24 14:46 [facility] [id number]) OT-Instrumental Activities of Daily Living Deficits IADL Deficits Identified Deficits Home Safety Awareness Awareness of Need for Assistance at Home Good Awareness Ability to Problem Solve Emergency Able to Problem Solve Situations Medication Management Medication Management Comments Pt states does his own medications. Money Management Money Management Comments Pt's does the bills. Meal Preparation Meal Preparation Caregiver Provides Assist Geographic Information Systems Director Ge[employer] Information [employer] Director Caregiver Provides Assist M6 OT- IP Functional Cognition Start: 04/29/24 14:33 Freq: Status: Active Protocol: Document 04/30/24 16:18 [facility] (Rec: 04/30/24 16:26 [facility] [id number]) Cognitive Factors Limiting Selfcare Function Cognitive Ability Memory Description Short Term Impaired Safety Awareness Underestimates Need for Assistance Cognitive Tests SLUMS Pt scored 25/30 on the SLUMS which implies mild neurocognitive deficits. Pt able to recall 13 animals in one minute and able to recall just 1 object after time passed. Pt states has not slept well and very tired. Pt aware that he has difficulty with his memory. Cognitive Comments Cognitive Assessment Comments Pt needs cues for safety awareness to keep the FWW in front of him and to be sure to slow his descent down with his arms and to be sure that he is all the way back to the recliner before sitting down. M7 OT- IP Mobility and Balance Start: 04/29/24 14:33 Freq: Status: Active Protocol: Document 04/30/24 16:18 [facility] (Rec: 04/30/24 16:26 [facility] [id number]) OT-Transfer Assessment Sit to and From Stand Sit to and from Stand Contact Guard Assistance Transfers Transfer Ability Contact Guard Assistance Technique Transfer Destination Chair,Toilet Transfer Technique Stand Step Pivot Comments Mobility Comments CGA with FWW. Pt still a little unsteady on his feet. OT- Balance Assessment Sitting Balance and Reactions Static Sitting Balance Ability Good Dynamic Sitting Balance Ability Good Standing Balance and Reactions Static Standing Balance Ability Fair Dynamic Standing Balance Ability Fair M8 OT- IP Objective Assessments Start: 04/29/24 14:33 Freq: Status: Active Protocol: Document 04/29/24 14:33 [facility] (Rec: 04/29/24 14:46 [facility] [id number]) OT Gross Range of Motion Upper Extremity Range of Motion Assessment Left Impaired ROM Impairments Due to recent fall, pt at [facility] has limited end ROM is certain positions. OT Strength Upper Extremity Strength Assessment Left Impaired OT Sensation Assessment Edema Edema Comments Pt's left foot swollen much greater than his right foot. ABle to assist pt to raise the foot of the bed higher to elevate his feet. M9 OT- IP Assessment and Plan Start: 04/29/24 14:33 Freq: Status: Active Protocol: Document 04/30/24 16:18 [facility] (Rec: 04/30/24 16:26 [facility] [id number]) OT Summary Assessment and Plan Potential Rehabilitation Potential Good Analytic Complexity at Evaluation Moderate Summary OT Impairments Pain,Strength,Balance, Functional Mobility,Dressing, Toileting,Bathing,Toilet Transfers,Shower Transfers, Activity Tolerance Progress Towards Goals Slow Progress due to Pain Assessment Summary Pt will still benefit from a FWW at home due to unsteady on his feet mainly from pain and swelling of his LLE. Pt will benefit from home with assist home health versus outpt PT. Goals Dressing Goal Minimal Assistance Toileting Goal Independent Bathing Goal Minimal Assistance Toilet Transfer Goal Independent Shower Transfer Goal Standby Assistance Days to Meet Goals 5 Frequency of Treatment Other frequency 5x/week Treatment Plan OT Treatment Plan ADL Training,Functional Mobility,Patient/Family Education,Discharge Planning Other Treatment Recommendations and Next YANDY for LB dressing Treatment Focus Discharge Recommendations OT Discharge Recommendations Home with Assistance,Home Health,Outpatient PT Home Equipment Needs shower chair, grab bar,fww Transportation Needs at Discharge Private Vehicle
[2024-04-30 20:28] VITALS: BP 144/45; PULSE 66; RESP 17; TEMP 35.6; O2SAT 95
[2024-04-30 20:37] VITALS: BP 164/75; PULSE 66; RESP 18; TEMP 36.7; O2SAT 97
[2024-04-30] MEDS: CARBIDOPA-LEVODOPA ER 50/200 TABLET 1 EACH PO (20:52)
[2024-04-30 20:53] VITALS: BP 144/45; PULSE 66
[2024-04-30] MEDS: ATORVASTATIN 20 MG TABLET 5 MG PO (20:53)
[2024-04-30] MEDS: cefTRIAXone 1,000 MG in SODIUM CHLORIDE 0.9% 100 ML 200 MG IV (23:04)
[2024-05-01 05:46] LABS: Add Manual Diff / Slide Review NO; Basophils Absolute Auto 100 /uL (0-100); Basophils Percent Auto 0.9 % (0-2); Eosinophils Absolute Auto 100 /uL (0-450); Eosinophils Percent Auto 1.4 % (2-4); Hematocrit 42.1 % (41-53); Lymphocytes Absolute Auto 1500 /uL (1100-4500); Lymphocytes Percent Auto 15.3 % (25-40); Mean Corpuscular HGB Conc 33.3 % (30-36); Mean Corpuscular Hemoglobin 29.7 PG (26-34); Mean Corpuscular Volume 89.2 fL (80-100); Monocytes Absolute Auto 900 /uL (0-900); Monocytes Percent Auto 9.3 % (3-14); Neutrophils Absolute Auto 7300 /uL (1500-7000); Neutrophils Percent Auto 73.1 % (50-75); Platelet Count 265 X10^3/uL (150-400); Red Blood Cell Count 4.72 X10^6/uL (4.5-5.9); Red Cell Distribution Width 13.9 % (11.6-14.8)
[2024-05-01 08:00] VITALS: BP 162/66; PULSE 73; RESP 20; TEMP 36.5; O2SAT 94
[2024-05-01] MEDS: allopurinoL 100 MG TABLET 300 MG PO (08:39)
[2024-05-01 08:40] VITALS: BP 162/66; PULSE 73
[2024-05-01] MEDS: ASPIRIN 81 MG CHEW TAB PO (08:40)
[2024-05-01] MEDS: CARBIDOPA-LEVODOPA 25/100 TABLET 2 EACH PO (08:40)
[2024-05-01] MEDS: carvediloL 3.125 MG TABLET 6.25 MG PO (08:40)
[2024-05-01] MEDS: FUROSEMIDE 40 MG TABLET PO (08:41)
[2024-05-01] MEDS: ENOXAPARIN 40 MG/0.4 ML SYRINGE SUBCUT (08:41)
[2024-05-01 08:42] VITALS: BP 162/66; PULSE 73
[2024-05-01] MEDS: glipiZIDE 5 MG TABLET PO (08:42)
[2024-05-01] MEDS: LOSARTAN 50 MG TABLET PO (08:42)
[2024-05-01] MEDS: MULTIVITAMIN 1 TABLET 1 TAB PO (08:43)
[2024-05-01] MEDS: VENLAFAXINE ER 75 MG CAP PO (08:43)
[2024-05-01] MEDS: PANTOPRAZOLE DR 20 MG TABLET PO (08:43)
[2024-05-01 08:44] LABS: BUN Creatinine Ratio 16.1 (6-22); Blood Urea Nitrogen 10 mg/dL (9-20); Calcium 9.2 mg/dL (8.4-10.2); Carbon Dioxide 22 mmol/L (22-32); Chloride 108 mmol/L (98-107); Estimated Glomerular Filt Rate > 60 mL/min (>60); Glucose 127 mg/dL (80-110); HEMOLYSIS < 15 (0-50); Magnesium 1.8 mg/dL (1.6-2.3); Potassium 3.8 mmol/L (3.4-5.1); Sodium 140 mmol/L (137-145)
--- NOTE | 2024-05-01 09:16 | OT.IP.TRT ---
Occupational Therapy Treatment Note M2 OT-IP Current Condition Start: 04/29/24 14:33 Freq: Status: Active Protocol: Document 04/29/24 14:33 [facility] (Rec: 04/29/24 14:46 [facility] [id number]) Occupational Therapy Current Condition Current Condition Evaluation Date 04/29/24 Treatment Diagnosis LLE cellulitis Diagnosis Onset Date 04/29/24 M3 OT- IP Subjective and Pain Start: 04/29/24 14:33 Freq: Status: Active Protocol: Document 05/01/24 09:20 [facility] (Rec: 05/01/24 09:28 [facility] [id number]) OT- Subjective Occupational Therapy Visit Type Type Treatment Note Visit Start Time 08:30 Visit Stop Time 09:16 Occupational Therapy Visit Comments Patient Comments Pt wanting to use the bathroom and pt's present. Patient/Caregiver Goals To go home. OT Pain Assessment Pain When Pain Assessed During Mobility Pain Present Pain Present Pain Reported M4 OT- IP ADL's Start: 04/29/24 14:33 Freq: Status: Active Protocol: Document 05/01/24 09:20 [facility] (Rec: 05/01/24 09:28 [facility] [id number]) OT [id number] General Evaluation Self-Feeding Ability Independent OT ADL-Grooming General Evaluation Grooming Ability Independent OT ADL-Oral Care General Eval Oral Care Ability Independent OT ADL-Dressing General Eval Lower Body Dressing Ability Maximum Assistance Comments OT Dressing Comments Assist with clothing up over his hips. OT ADL-Toileting General Evaluation Toileting Ability Moderate Assistance Areas Needing Assistance Manage Clothing OT ADL-Bathing Comments OT Bathing Comments Pt will greatly benefit from a shower chair. Pt's states good understanding of suggestion. M5 OT- IP IADL's Start: 04/29/24 14:33 Freq: Status: Active Protocol: Document 04/29/24 14:33 [facility] (Rec: 04/29/24 14:46 [facility] [id number]) OT-Instrumental Activities of Daily Living Deficits IADL Deficits Identified Deficits Home Safety Awareness Awareness of Need for Assistance at Home Good Awareness Ability to Problem Solve Emergency Able to Problem Solve Situations Medication Management Medication Management Comments Pt states does his own medications. Money Management Money Management Comments Pt's does the bills. Meal Preparation Meal Preparation Caregiver Provides Assist Graduate Assistant Graduate Assistant Caregiver Provides Assist M6 OT- IP Functional Cognition Start: 04/29/24 14:33 Freq: Status: Active Protocol: Document 05/01/24 09:20 [facility] (Rec: 05/01/24 09:28 [facility] [id number]) Cognitive Factors Limiting Selfcare Function Cognitive Ability Memory Description Short Term Impaired Safety Awareness Underestimates Need for Assistance Cognitive Tests SLUMS Per , pt is very stubborn. Pt's is well aware to provide assist for pt. Suggested best to have grab bars in place so pt able to focus on his balance when standing while she assist with his clothing needs. Cognitive Comments Cognitive Assessment Comments Pt continues to need MOD vc for safety awareness, vc to slow down, be sure to get his weight over his feet for his balance, to have the FWW in front of him at all times. M7 OT- IP Mobility and Balance Start: 04/29/24 14:33 Freq: Status: Active Protocol: Document 05/01/24 09:20 [facility] (Rec: 05/01/24 09:28 [facility] [id number]) OT-Transfer Assessment Sit to and From Stand Sit to and from Stand Standby Assistance,Minimal Assistance,Moderate Assistance Transfers Transfer Ability Contact Guard Assistance Technique Transfer Destination Chair,Toilet Transfer Technique Stand Step Pivot Comments Mobility Comments Pt from lower surfaces needing MODA to stand and uses his lift chair at home to come to stand. Pt's able to cheryl/ doff gait belt and assist pt to the bathroom with FWW. Strongly recommended to not use suction cup grab bar and rather have grab bar installed for safety. OT- Balance Assessment Sitting Balance and Reactions Static Sitting Balance Ability Good Dynamic Sitting Balance Ability Good Standing Balance and Reactions Static Standing Balance Ability Fair Dynamic Standing Balance Ability Poor M9 OT- IP Assessment and Plan Start: 04/29/24 14:33 Freq: Status: Active Protocol: Document 05/01/24 09:20 [facility] (Rec: 05/01/24 09:28 [facility] [id number]) OT Summary Assessment and Plan Potential Rehabilitation Potential Good Analytic Complexity at Evaluation Moderate Summary OT Impairments Pain,Strength,Balance, Functional Mobility,Dressing, Toileting,Bathing,Toilet Transfers,Shower Transfers, Activity Tolerance Progress Towards Goals Slow Progress due to Medical Issues,Slow Progress due to Activity Tolerance Assessment Summary Able to issue FWW to pt and do caregiver training with the for ADL and transfer needs. Pt ideally would benefit from skilled rehab however OBS status and therefore best to have home health and 24/7 available assist. Goals Dressing Goal Minimal Assistance Toileting Goal Independent Bathing Goal Minimal Assistance Toilet Transfer Goal Independent Shower Transfer Goal Standby Assistance Days to Meet Goals 5 Frequency of Treatment Other frequency 5x/week Treatment Plan OT Treatment Plan ADL Training,Functional Mobility,Patient/Family Education,Discharge Planning Discharge Recommendations OT Discharge Recommendations Home with 24/7 Assist Available,Home Health Home Equipment Needs shower chair, eric rousseau,[employer]
--- NOTE | 2024-05-01 09:55 | PT.IPTN ---
Physical Therapy Treatment Note M2 PT-IP Current Condition Start: 04/29/24 12:55 Freq: NEEDED Status: Discharge Protocol: Document 04/29/24 10:15 [facility] (Rec: 04/29/24 14:01 [facility] [id number]) Physical Therapy Current Condition Current Condition Evaluation Date 04/29/24 Treatment Diagnosis LLE cellulitis; difficulty in walking Onset Date 04/29/24 M3 PT-IP Subjective Start: 04/29/24 12:55 Freq: NEEDED Status: Discharge Protocol: Document 05/01/24 09:55 [facility] (Rec: 05/01/24 11:49 [facility] [id number]) Subjective Physical Therapy Visit Type Type Treatment Note Visit Start Time 09:55 Visit Stop Time 10:20 Number of ACCOUNTS RECEIVABLE CLERK Visits 0 M4 PT-IP Mobility and Gait Start: 04/29/24 12:55 Freq: NEEDED Status: Discharge Protocol: Document 05/01/24 09:55 [facility] (Rec: 05/01/24 11:49 [facility] [id number]) PT-Transfer Assessment Sit to and From Stand Sit to and from Stand Standby Assistance,Contact Guard Assistance,Minimal Assistance,1 Person Assistance ,Use of Upper Extremities Equipment Transfer Assistive Device Gait Belt,Front Wheeled Walker Orthotic/Prosthetic Devices or Brace: No Comments Mobility Comments checked on pt and pt using the toilet and spouse in room. pt initially refusing PT. informed pt and spouse regarding stair climbing training and pt stated that he can do the stairs and refuse PT. spouse encouraged pt to do stairs with PT. pt agreed but spouse stated that pt will need a few minutes to use the toilet. checked back on pt after using the toilet and pt sitting on the chair. pt completed sit<> stand with multiple attempts and needing min A and max cues to complete. informed spouse to assist pt with keeping body /trunk forward for sit to stand. pt ambulated ~ 30 ft to the w/c using FWW SBA to CGA. presents with shuffling gait . cued on how to use FWW for support. assisted pt to the stairs. pt completed sit to stand from the w/c SBA to CGA and ambulate to the stairs SBA using fWW. completed up/down step using L rail ascending + quad cane min A and cues and completed again using R rail + quad cane. pt completed 4 sets. pt with increase posterior trunk leaning during descent and needing assist and cues for safety. informed spouse and pt on safety and techniques to complete stairs. assisted pt back to his room. pt and spouse without further concerns. call light placed within reach. Gait Assessment Gait Gait Assistance Required: Standby Assistance,Contact Guard Assist Distance (Feet) 30 Able to Maintain Weight Bearing Status Yes During Gait Assistive Devices Assistive Device Gait Belt,Front Wheeled Walker Orthotic/Prosthetic Devices or Brace: No Gait Deviations General Gait Pattern Decreased Stride Length, Decreased Feet Clearance,Step- to Gait Factors Limiting Gait Function Factors Limiting Gait Function Decreased Activity Tolerance, Decreased Strength,Limited Range of Motion,Pain,Poor Balance,Poor Safety Awareness Stair Climbing Assessment Evaluation Level of Assist On Stairs Minimal Assistance Devices Stair Climbing Assistive Devices Small Base Quad Cane,Left Railing,Right Railing Technique/Endurance Stair Climbing Direction Ascend and Descend Stair Climbing Technique Step to Step Number of Steps Climbed 3 Stair Climbing Set # Repetitions (reps) 4 M5 PT-IP Objective Assessments Start: 04/29/24 12:55 Freq: NEEDED Status: Discharge Protocol: Document 04/29/24 10:15 [facility] (Rec: 04/29/24 14:01 [facility] [id number]) Orientation Orientation/Cognition Level of Alertness Alert Orientation Name,Place,Situation Language Function Ability No Deficits Noted Safety Awareness Decreased Safety Awareness Memory Description No Deficits Noted Strength Lower Extremity Strength Assessment Left Impaired Knee 3+/5 Muscle Tone Muscle Tone WNL Yes M6 PT-IP Treatment Start: 04/29/24 12:55 Freq: NEEDED Status: Discharge Protocol: Document 05/01/24 09:55 [facility] (Rec: 05/01/24 11:49 [facility] [id number]) Physical Therapy Treatment Education Education Provided Safety M7 PT-IP Assessment and Plan Start: 04/29/24 12:55 Freq: NEEDED Status: Discharge Protocol: Document 05/01/24 09:55 [facility] (Rec: 05/01/24 11:49 [facility] [id number]) PT Summary Assessment and Plan Potential Rehabilitation Potential Fair Summary Impairments Pain,ROM,Strength,Balance, Coordination,Sensation,Tone, Cognition,Bed Mobility, Transfers,Gait,Activity Tolerance Progress Towards Goals Slow Progress due to Pain,Slow Progress due to Medical Issues,Slow Progress due to Activity Tolerance Assessment Summary pt requiring SBA to min A with mobility using fWW. pt refusing to go to SNF but limited assistance at home since spouse is pending pacemaker placement and cannot assist pt much. pt will benefit from HHPT. Goals Bed Mobility Goal Standby Assistance Transfer Goal Standby Assistance,Front Wheeled Walker Gait Goal Standby Assistance,Front Wheel Walker Gait Distance 200 Other Goals improve bed mobility, transfers, ambulation using LRAD 300 ft mod i up/down 8 steps L rail ascending + 8 steps R rail ascending Days to Meet Goals 10 Frequency of Treatment Frequency Of Treatment Once a Day Other frequency or as tolerated Treatment Plan Physical Therapy Treatment Plan Bed Mobility Training,Transfer Training,Gait Training, Therapeutic Exercise,Balance Retraining,Discharge Planning, Hot or Cold Pack,Neuromuscular Re-ed,Coordination Retraining ,Manual Therapy Recommendations To Nursing Amount of Assist Needed 1 Person Assist Discharge Recommendations PT Discharge Recommendations Home with 29/04 Assist Available,Home Health,SNF Rehab Transportation Needs at Discharge Private Vehicle,Wheelchair/ Cabulance
--- NOTE | 2024-05-01 11:15 | CM.DPC ---
DCP Discharge home with HH Per MD, pt is medically stable to discharge home today with spouse and HH and some outpt f/u. Per PT/OT, pt still declines SNF and spouse participated in CG training this morning and requested FWW orders and issued pt a walker for home use. Recommending HH. RADHA met bedside with pt and spouse and explained role and discussed that pt currently OBS Status and if they wanted SNF would need [facility] MCR auth for SNF and pt borderline for SNF approval. Pt and spouse confirm that preference is home. SW discussed HH services and frequency and pt confirms he used HH after heart surgery in 2014 with [facility] at the time and found it helpful. Pt and spouse agreeable with HH and provided HH Choice list and no HH preference. [facility] referral made based on Vendor Calendar and SW called and they are contracted with [facility] but have to review each case and pt does not have significant care needs and no wound care needs and they can likely accept easily. F2F and HH orders completed and faxed and brochure provided to spouse. SW updated RN. Plan: Patient to discharge home via spouse POV today before lunchtime and [facility] to review and notify pt and spouse if they can accept. CHERRY Bledsoe
--- NOTE | 2024-05-01 11:40 | PM.DS.1 ---
History of Present Illness History of Present Illness Date Patient Seen: 05/01/24 Time Patient Seen: 08:25 Date of Onset of Symptoms: 05/01/24 Chief complaint: leg swelling and painful Narrative: 74 years old male with history of gout, GERD, obesity, CAD, hyperlipidemia, hypertension, diabetes mellitus type 2, Parkinson's disease presented to the ER for redness, tenderness and swelling of his left lower extremities in the last week. Patient has a history of left leg cellulitis 4 months ago treated with antibiotics. Denies any leg injury. The patient was given vancomycin and ceftriaxone IV in the ED. He had ultrasound lower extremities for rule out DVT and it was negative. X-ray was negative for osteomyelitis. Laboratory was unremarkable. MRSA was negative. Additional information: He was history of chronic leg edema secondary to venous insufficiency. He did have an aortic valve replacement in 2013 but his most recent echo reveals ongoing good cardiac function. He was done well overnight with some improvement of the erythema of the left leg. No recent fevers, or chills. No pain issues. He does not use compression stockings currently because of logistic difficulty placing these. He denies any orthopnea or dyspnea with exertion. Discharge Providers Provider Date of admission: 04/29/24 01:12 Discharge Date: 05/01/24 Primary care physician: Ynes Laird MD Consults: 04/29/24 00:59 Consult to Pharmacy Stat Comment: dose Abx 04/29/24 01:02 Consult to Occupational Therapy Evaluate & Treat Comment: Physician Instructions: Evaluate and treat Consult to Physical Therapy Evaluate & Treat Comment: Physician Instructions: Evaluate and Treat 05/01/24 08:42 Consult to Home Health Routine Comment: Leg cellulitis, Parkinsons Reason For Exam: FWW for home use at discharge 05/01/24 11:05 Consult to Home Health Routine Comment: Leg Cellulitis, Parkinson's, unsteady gait Reason For Exam: Set up HH RN/PT/OT/DIGITAL SPECIALIST for discharge Home Discharge provider: Kenyon Villarreal MD Summary Hospital Course Discharge Diagnosis: 1. Left lower extremity cellulitis, present on admission and significantly improved. -Antibiotics of Vancomycin, ceftriaxone transition to oral at discharge -Blood cultures times 2 negative at discharge, wound cultures negative at discharge, wound care. -Elevated the affected area/limb 2. Gout, present on admission and active. -continue allopurinol 3. Hyperlipidemia, present on admission and active. -continue atorvastatin. 4. Parkinson's disease, present on admission and active. -continue carbidopa 5. CAD, present on admission and active. -continue aspirin, statins and carvedilol 6. Hypertension, present on admission and active. -continue losartan. 7. CHF, present on admission and active. -continue Lasix, losartan, aspirin and metoprolol. 8. Diabetes mellitus type 2, [id number], present on admission and active. -continue glipizide. Hold metformin during the hospital stay. ADA diet, SSI, monitor blood sugar ACHS 9. GERD, present on admission and active. -continue omeprazole. 10. Depression, present on admission and active. -continue venlafaxine. Hospital Course: Left tibia-fibula x-ray 04/28/2024: Soft tissue swelling of the left lower leg. No underlying fracture or dislocation. If there are persistent symptoms or clinical suspicion for pathology, then repeat radiographs or advanced imaging (CT or MRI) may be considered for further evaluation. Left foot x-ray 04/28/2024: Marked soft tissue swelling of the dorsal aspect of the left forefoot without underlying osseous abnormalities. Prominent plantar calcaneal and retrocalcaneal enthesophytes If there are persistent symptoms or clinical suspicion for pathology, then repeat radiographs or advanced imaging (CT or MRI) may be considered for further evaluation. Left lower extremity venous Doppler 04/28/2024: No findings of lower extremity deep venous thrombosis. Status at Discharge Cognitive/behavioral status at discharge: oriented Functional status at discharge: independent ambulation Overall status at discharge: patient is back to baseline Time Spent with Patient Time spent: Less than 30 minutes Exam Vital Signs (past 8 hours): - 05/01/24 08:00 05/01/24 08:40 05/01/24 08:42 Temperature 97.7 F Pulse Rate 73 73 73 Respiratory Rate 20 Blood Pressure 162/66 H 162/66 H 162/66 H Pulse Oximetry 94 Oxygen Delivery Method Room Air Oxygen Flow Rate 0 Narrative Exam Narrative: NAD, alert and oriented. Fluent speech. Lungs are clear, normal rate and effort. Heart is regular, no murmur gallop or rub. Abdomen is soft, non distended. Extremities: Both legs are swollen, left greater than the right. The left is still somewhat light red in color. Less tender to touch. Objective Labs 05/01/24 05:35 05/01/24 08:17 Labs: Laboratory Results - last 24 hr 04/30/24 05/01/24 05/01/24 11:59 05:35 08:17 WBC 10.0 RBC 4.72 Hgb 14.0 Hct 42.1 MCV 89.2 MCH 29.7 MCHC 33.3 RDW 13.9 Plt Count 265 Neut % (Auto) 73.1 Lymph % (Auto) 15.3 L Colbert % (Auto) 9.3 Eos % (Auto) 1.4 L Baso % (Auto) 0.9 Neut # (Auto) 7300 H Lymph # (Auto) 1500 Colbert # (Auto) 900 Eos # (Auto) 100 Baso # (Auto) 100 Sodium 143 140 Potassium 4.2 3.8 Chloride 107 108 H Carbon Dioxide 27 22 BUN 10 10 Creatinine 0.74 0.62 L Estimated GFR > 60 > 60 BUN/Creatinine Ratio 13.5 16.1 Glucose 63 L 127 H Calcium 9.7 9.2 Magnesium 1.9 1.8 Vancomycin Trough 9.5 L PFSH Medical History Gout (~1987) GERD (gastroesophageal reflux disease) Obesity (BMI 30-39.9) Ischemic heart disease Type 2 diabetes mellitus Hyperlipidemia associated with type 2 diabetes mellitus Hypertension Primary insomnia Snoring (~1987) Surgical History S/P AVR (aortic valve replacement) (~2014) Social History marital status: details: 2 (adopted) adult children, each with mental illness/special needs number of children: 2 household members: spouse lives independently: Yes housing: house pets and animals: Yes education level: college occupational status: employed 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 Candie Laird 1 week Discharge orders & Medications Prescriptions: New cefuroxime axetil 500 mg tablet 500 mg PO BID Qty: 16 0RF Continued carvedilol [Coreg] 6.25 mg tablet 6.25 mg PO BID Rx Instructions: must administer with a meal/food allopurinol 300 mg tablet 300 mg PO DAILY losartan [Cozaar] 50 mg tablet 50 mg PO DAILY atorvastatin [Lipitor] 10 mg tablet 5 mg PO BEDTIME venlafaxine 75 mg capsule,extended release 24hr 75 mg PO DAILY carbidopa-levodopa 25-100 mg tablet,disintegrating 2 tab PO TID carbidopa-levodopa 50-200 mg tablet extended release 1 tab PO BEDTIME trazodone 50 mg tablet 75 mg PO BEDTIME PRN (Reason: Insomnia) ascorbic acid (vitamin C) 500 mg capsule 500 mg PO DAILY Patient Comments: twice a day omeprazole 20 mg capsule,delayed release(DR/EC) 20 mg PO DAILY PRN (Reason: Heartburn) mecobalamin (vitamin B12) 2,500 mcg tablet,chewable 2,500 mcg PO DAILY aspirin 81 mg tablet,chewable 81 mg PO DAILY multivitamin Tablet 1 tab PO DAILY fluticasone propionate 50 mcg/actuation spray,suspension 2 spray intranasal DAILY Rx Instructions: administer into each nostril capsaicin 0.025 % cream 1 applic topical QID Rx Instructions: do not wash area for at least 30 min after application furosemide [Lasix] 40 mg tablet 40 mg PO DAILY Qty: 10 0RF glipizide 5 mg tablet extended release 24hr 5 mg PO DAILY tamsulosin 0.4 mg capsule 0.4 mg PO DAILY metformin 500 mg tablet extended release 24 hr 1,000 mg PO BID pregabalin 150 mg capsule 150 mg PO TID Follow up/Referrals: Ynes Laird MD [Primary Care Provider] - 1 Week (*Appt on Saturday, April with at 11 am. [phone].) Visit Report/Discharge Packet Stand Alone Forms: Patient Portal/API, Stroke Signs & Symptoms Discharge Data Primary Care Provider: Ynes Laird Attending Provider: Tyshawn Aj Admit Date/Time: 04/29/24 01:12 Quality VTE Deep Vein Thrombosis/Pulmonary Embolism Present on Admission: No MIPS - Admit I confirm the patient?s Advance Care Plan is present, Code status is documented, Surrogate decision maker is in patient?s record [If Yes, STOP here]: Yes MIPS - Meds 'Current medications' to include all prescriptions, [id number] products, herbals, cannabis/cannabidiol products, and vitamin/mineral/dietary (nutritional) supplements. I have utilized all available resources to obtain, update, or review the patient?s current medications. [If Yes, STOP here]: Yes MIPS - DC The patient has a history of heart transplant or Left Ventricular Assist Device (LVAD). If yes, STOP here.: No The patient has current or prior documentation of left ventricular ejection fraction (LVEF) less than or equal to 40%, or moderate or severely depressed left ventricular systolic function.: No A. The patient was prescribed or already taking an Angiotensin-Converting Enzyme (CHIKIS) Inhibitor, or Angiotensin Receptor [place] (ARB).: No B. The patient was prescribed or already taking a beta-quita. [If Yes to Both A & B, STOP here]: No Patient not prescribed/taking CHIKIS or ARB, no reason given.: No Patient not prescribed/taking beta-quita, no reason given.: No PROFEE Charge Codes Discharge inpatient/observation: [id number]
--- NOTE | 2024-05-07 17:27 | PC.NURSE ---
Late entry: Vancomycin infusion initiated 04/29 at 0018 complete at 0149. Vancomycin infusion initiated 04/30 at 1326 complete at 1527.
== END 2024-05-01 10:45 | disposition home or self-care (01) ==
LOC: ED 04-29 00:55 → AC 04-29 06:56
PROVIDERS: Hospitalist; Admitting Provider Internal Medicine; Emergency Provider Emergency Medicine; PCP Internal Medicine; Referring Provider Emergency Medicine; Visit Provider Internal Medicine
DX: L03.116 Cellulitis of left lower limb (principal); E11.9 Type 2 diabetes mellitus without complications; G20.A1 Parkinson's disease without dyskinesia, without mention of fluctuations; I25.10 Atherosclerotic heart disease of native coronary artery without angina pectoris; I11.0 Hypertensive heart disease with heart failure; I50.9 Heart failure, unspecified; M10.9 Gout, unspecified; E78.5 Hyperlipidemia, unspecified; Z79.84 Long term (current) use of oral hypoglycemic drugs
CPT/HCPCS: 36415; 73590; 73630; 80048; 80053; 80202; 82962; 83605; 83735; 85025; 87040; 87797; 93971; 96365; 96366; 96367; 96372; 97116; 97129; 97162; 97166; 97530; 97533; 97535; 99284; G0378; J0696; J1650

== ENCOUNTER 2024-07-08 09:52 | Emergency (ER) | payer MEDICARE, SELFPAY ==
[2024-07-08] VITALS (14 sets, daily range): BP systolic 114–133; BP diastolic 62–72; PULSE 69–97; RESP 13–30; TEMP 37.3; O2SAT 93–96; BMI 33.9
--- NOTE | 2024-07-08 09:58 | ED.SYNCOPE ---
HPI - Syncope General Chief Complaint: Weakness Stated Complaint: Near Syncope , weakness Time Seen by Provider: 07/08/24 09:58 History of Present Illness HPI narrative: Patient is a 74-year-old male with history of gout hypertension hyperlipidemia Parkinson's comes into the ED via EMS for evaluation of presyncope. States that he was trying to go up the stairs when he felt little lightheaded/dizzy, states that he did fall, states that he is unsure if he actually passed out, but states that he is feeling better now, states that this has happened in the past. Denies head strike. States that he has not on any blood thinners. States that he has been working with getting the swelling down and therefore has had decreased p.o. intake and fluids over the past month. Patient at time of initial evaluation NIH of 0 no focal deficits moving all 4 extremities A&O x4. He has no other symptoms at this time Related Data Home Medications Medication Instructions Recorded Confirmed allopurinol 300 mg tablet 300 mg PO DAILY 02/25/24 04/29/24 ascorbic acid (vitamin C) 500 mg 500 mg PO DAILY 02/25/24 04/29/24 capsule aspirin 81 mg chewable tablet 81 mg PO DAILY 02/25/24 04/29/24 atorvastatin 10 mg tablet (Lipitor) 5 mg PO BEDTIME 02/25/24 04/29/24 capsaicin 0.025 % topical cream 1 applic topical QID 02/25/24 04/29/24 carbidopa 25 mg-levodopa 100 mg 2 tab PO TID 02/25/24 04/29/24 disintegrating tablet carbidopa ER 50 mg-levodopa 200 mg 1 tab PO BEDTIME 02/25/24 04/29/24 tablet,extended release carvedilol 6.25 mg tablet (Coreg) 6.25 mg PO BID 02/25/24 04/29/24 fluticasone propionate 50 2 spray intranasal DAILY 02/25/24 04/29/24 mcg/actuation nasal spray,suspension losartan 50 mg tablet (Cozaar) 50 mg PO DAILY 02/25/24 04/29/24 mecobalamin (vitamin B12) 2,500 2,500 mcg PO DAILY 02/25/24 04/29/24 mcg chewable tablet multivitamin 1 tab PO DAILY 02/25/24 04/29/24 omeprazole 20 mg capsule,delayed 20 mg PO DAILY PRN Heartburn 02/25/24 04/30/24 release trazodone 50 mg tablet 75 mg PO BEDTIME PRN Insomnia 02/25/24 04/29/24 venlafaxine 75 mg capsule,extended 75 mg PO DAILY 02/25/24 04/29/24 release 24 hr glipizide 5 mg tablet, extended 5 mg PO DAILY 04/29/24 04/29/24 release 24 hr metformin 500 mg tablet,extended 1,000 mg PO BID 04/29/24 04/29/24 release 24 hr pregabalin 150 mg capsule 150 mg PO TID 04/29/24 04/29/24 tamsulosin 0.4 mg capsule 0.4 mg PO DAILY 04/29/24 04/29/24 Previous Rx's Medication Instructions Recorded furosemide 40 mg tablet (Lasix) 40 mg PO DAILY #10 tabs 12/28/23 cefuroxime axetil 500 mg tablet 500 mg PO BID #16 tabs 05/01/24 Allergies Allergy/AdvReac Type Severity Reaction Status Date / Time Sulfa (Sulfonamide Allergy Severe swelling Verified 07/08/24 10:02 Antibiotics) [SULFA (SULFONAMIDE ANTIBIOTICS)] Penicillins [PENICILLINS] Allergy Intermediate Fever Verified 07/08/24 10:02 strawberry Allergy Rash Verified 07/08/24 10:02 Review of Systems Review of Systems Narrative: General: Denies fever, chills, weight loss HEENT: Denies headache, eye drainage, eye irritation, head trauma, sore throat, voice change Cardiovascular: Denies any chest pain, palpitations, shortness of breath, tachycardia Respiratory: Denies any shortness of breath, cough, wheeze, stridor GI/: Denies any abdominal pain, nausea, vomiting, diarrhea, bright red blood per rectum, melanotic stools, urinary frequency, urinary retention, dysuria, hematuria MSK: Denies any joint pain, muscle pains, swelling Skin: Denies any rashes, lesions, discoloration Neuro: Positive for presyncope, lightheaded/dizzy, negative headache Psych: Denies SI/HI Patient History Medical History Gout (~1987) GERD (gastroesophageal reflux disease) Obesity (BMI 30-39.9) Ischemic heart disease Type 2 diabetes mellitus Hyperlipidemia associated with type 2 diabetes mellitus Hypertension Primary insomnia Snoring (~1987) Surgical History S/P AVR (aortic valve replacement) (~2014) Social History marital status: details: 2 (adopted) adult children, each with mental illness/special needs number of children: 2 household members: spouse lives independently: Yes housing: house pets and animals: Yes education level: college occupational status: employed 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 Smoking Status: Former smoker alcohol intake: former substance use type: does not use Smoking Status: Former smoker Substance Use Type: does not use Exam Narrative Exam Narrative: General: Cooperative, comfortable, well-developed, not in acute distress HEENT: Normocephalic, atraumatic, PERRLA, normal sclera, eyelids normal, Neck: Active full range of motion, atraumatic Chest: Normal to inspection, negative crepitus, no overlying erythema ecchymosis Respiratory: Normal respiratory effort, not in acute respiratory distress, clear to auscultation bilaterally negative cough, wheeze, tachypnea, rhonchi, rales Cardiology: Regular rate rhythm negative gallop, murmur, rubs GI/: Normal to inspection, soft, nonrigid, no tenderness to palpation, exam deferred MSK: Full range of active range of motion of all 4 extremities, atraumatic Skin: No rashes lesions noted Neuro: Alert awake oriented x3, moves all 4 extremities spontaneously, cranial nerves intact, able to answer all questions appropriately follows commands appropriately, NIH of 0 no focal deficits Psych: Cooperative, negative suicidal or homicidal ideations Initial Vital Signs Initial Vital Signs: Vital Signs Temperature 99.1 F 07/08/24 09:55 Pulse Rate 96 H 07/08/24 09:55 Respiratory Rate 18 07/08/24 09:55 Blood Pressure 133/71 07/08/24 09:55 Pulse Oximetry 96 07/08/24 09:55 Oxygen Delivery Method Room Air 07/08/24 09:55 Course Orders Ordered: ED Orders 07/08/24 09:50 Complete Blood Count AUTO DIFF Stat Comprehensive Metabolic Panel Stat Lipase Stat Magnesium Stat NT-proBNP (BNP-Adult 18+) Stat PTT Partial Thromboplastin Rashad Stat Prothrombin Time INR Stat Troponin & CK Cardiac Panel Stat 07/08/24 10:02 XR chest 1V Stat EKG-12 Lead Stat 07/08/24 10:04 CT angio head and neck Stat CT head/brain wo con Stat Discontinued Medications Magnesium Sulfate (Magnesium Sulfate) 2 gm in 50 mls @ 150 mls/hr IV NOW ONE Stop: 07/08/24 11:12 Last Infusion: 07/08/24 12:14 Dose: Infused Documented By: ELVIRA Co-signed By: JERO Admin: 07/08/24 11:16 Dose: 150 mls/hr Documented By: DYLAN Co-signed By: ARLYN Vital Signs Vital signs: Vital Signs - 8 hr 07/08/24 09:55 07/08/24 09:56 07/08/24 09:57 Temperature 99.1 F Pulse Rate 96 H 96 H Pulse Rate [Orthostatic Lying] Pulse Rate [Orthostatic Standing] Respiratory Rate 18 Blood Pressure 133/71 133/71 Blood Pressure [Orthostatic Lying] Blood Pressure [Orthostatic Sitting] Blood Pressure [Orthostatic Standing] Pulse Oximetry 96 95 Oxygen Delivery Method Room Air 07/08/24 09:57 07/08/24 10:00 07/08/24 10:00 Temperature Pulse Rate 96 H 95 H Pulse Rate [Orthostatic Lying] Pulse Rate [Orthostatic Standing] Respiratory Rate 19 17 Blood Pressure 125/62 Blood Pressure [Orthostatic Lying] Blood Pressure [Orthostatic Sitting] Blood Pressure [Orthostatic Standing] Pulse Oximetry 96 95 Oxygen Delivery Method 07/08/24 10:30 07/08/24 10:30 07/08/24 10:42 Temperature Pulse Rate 93 H Pulse Rate [Orthostatic Lying] Pulse Rate [Orthostatic Standing] Respiratory Rate 16 Blood Pressure 115/68 114/68 Blood Pressure [Orthostatic Lying] Blood Pressure [Orthostatic Sitting] Blood Pressure [Orthostatic Standing] Pulse Oximetry 93 Oxygen Delivery Method 07/08/24 10:42 07/08/24 10:45 07/08/24 10:45 Temperature Pulse Rate 82 95 H Pulse Rate [Orthostatic Lying] Pulse Rate [Orthostatic Standing] Respiratory Rate 16 25 H Blood Pressure 114/72 Blood Pressure [Orthostatic Lying] Blood Pressure [Orthostatic Sitting] Blood Pressure [Orthostatic Standing] Pulse Oximetry 93 94 Oxygen Delivery Method 07/08/24 10:47 07/08/24 10:47 07/08/24 10:51 Temperature Pulse Rate 97 H Pulse Rate [Orthostatic Lying] 81 Pulse Rate [Orthostatic Standing] 97 H Respiratory Rate 30 H Blood Pressure 131/72 Blood Pressure [Orthostatic Lying] 114/68 Blood Pressure [Orthostatic Sitting] 114/72 Blood Pressure [Orthostatic Standing] 131/72 Pulse Oximetry Oxygen Delivery Method 07/08/24 11:00 07/08/24 11:00 07/08/24 11:30 Temperature Pulse Rate 81 76 Pulse Rate [Orthostatic Lying] Pulse Rate [Orthostatic Standing] Respiratory Rate 19 17 Blood Pressure 116/62 Blood Pressure [Orthostatic Lying] Blood Pressure [Orthostatic Sitting] Blood Pressure [Orthostatic Standing] Pulse Oximetry 93 96 Oxygen Delivery Method 07/08/24 12:00 Temperature Pulse Rate 69 Pulse Rate [Orthostatic Lying] Pulse Rate [Orthostatic Standing] Respiratory Rate 13 Blood Pressure Blood Pressure [Orthostatic Lying] Blood Pressure [Orthostatic Sitting] Blood Pressure [Orthostatic Standing] Pulse Oximetry 95 Oxygen Delivery Method MDM - Syncope Differential Diagnosis Differential diagnosis: Likely syncope due to orthostatic hypotension, vasovagal syncope, complete atrioventricular block, subarachnoid hemorrhage, dehydration and other (Electrolyte abnormality) Medical Records Attestation: I reviewed the patient's medical records. Lab Data Attestation: I reviewed the patient's lab results. 07/08/24 09:50 07/08/24 09:50 Labs: Lab Results 07/08/24 Range/Units 09:50 WBC 11.6 H (4.5-11.0) X10^3/uL RBC 4.85 (4.5-5.9) X10^6/uL Hgb 14.1 (13.5-17.5) g/dL Hct 42.9 (41-53) % MCV 88.4 (80-100) fL MCH 29.0 (26-34) PG MCHC 32.8 (30-36) % RDW 14.0 (11.6-14.8) % Plt Count 296 (150-400) X10^3/uL Neut % (Auto) 82.6 H (50-75) % Lymph % (Auto) 8.2 L (25-40) % [place] % (Auto) 7.3 (3-14) % Eos % (Auto) 1.5 L (2-4) % Baso % (Auto) 0.4 (0-2) % Neut # (Auto) 9500 H (1678-4463) /uL Lymph # (Auto) 1000 L (6281-4791) /uL [place] # (Auto) 800 (0-900) /uL Eos # (Auto) 200 (0-450) /uL Baso # (Auto) 100 (0-100) /uL PT 12.4 (9.4-12.5) SECONDS INR 1.1 (0.9-1.3) APTT 34 (25.1-36.5) SECONDS Sodium 137 (137-145) mmol/L Potassium 4.2 (3.4-5.1) mmol/L Chloride 105 (98-107) mmol/L Carbon Dioxide 22 (22-32) mmol/L BUN 13 (9-20) mg/dL Creatinine 0.74 (0.66-1.25) mg/dL Estimated GFR > 60 (>60) mL/min BUN/Creatinine Ratio 17.6 (6-22) Glucose 186 H (80-110) mg/dL Calcium 9.5 (8.4-10.2) mg/dL Magnesium 1.5 L (1.6-2.3) mg/dL Total Bilirubin 0.9 (0.2-1.3) mg/dL AST 25 (17-59) IU/L ALT 8 (<50) IU/L Alkaline Phosphatase 106 (38-126) U/L Total Creatine Kinase 49 L (55-170) U/L Troponin I < 0.012 (0.01-0.034) ng/mL NT-Pro-B Natriuret Pep 170 H (<125) pg/mL Total Protein 7.9 (6.3-8.2) g/dL Albumin 4.3 (3.5-5.0) g/dL Globulin 3.6 (1.7-4.1) g/dL Albumin/Globulin Ratio 1.2 (1.0-2.8) Lipase 117 (23-300) U/L Imaging Data CT head: Radiologist's Impression: PROCEDURE: CT HEAD/BRAIN WO CON INDICATIONS: Syncope TECHNIQUE: Noncontrast 4.5 mm thick angled axial sections acquired from the foramen magnum to the vertex, with coronal and sagittal reformats. For radiation dose reduction, the following was used: automated exposure control, adjustment of mA and/or kV according to patient size. COMPARISON: [facility], , MR STROKE, 06/24/2020, 11:14. FINDINGS: Image quality: Diagnostic. CSF spaces: Basal cisterns are patent. No extra-axial fluid collections. The ventricles are symmetric in size and shape. Brain: No intracranial bleeds or masses. There is cerebral volume loss for age, with resultant ventricular and sulcal prominence. There are periventricular and deep white matter chronic small vessel ischemic changes. There is intracranial internal carotid artery atherosclerosis. Skull and face: Calvarium and visualized facial bones appear intact, without suspicious lesions. Sinuses: Visualized sinuses and mastoids are clear. IMPRESSION: No acute intracranial pathology. CT angio head and neck: Radiologist's Impression: PROCEDURE: CT ANGIO HEAD AND NECK INDICATIONS: Syncope TECHNIQUE: After the administration of intravenous contrast, 1 mm thick sections acquired from the aortic arch through the [place] of [place]. 3-dimensional hdblukt-iwadvoqru-uwvlxvnfbq (MIP) and/or volume rendering reformats were acquired of the central intracranial vasculature and neck separately. For radiation dose reduction, the following was used: automated exposure control, adjustment of mA and/or kV according to patient size. COMPARISON: [facility], , MR STROKE, 06/24/2020, 11:14. FINDINGS: Image quality: Diagnostic. BRAIN: Please refer to separately dictated CT of the head. HEAD CT ANGIOGRAPHY: Anterior circulation: Intracranial internal carotid arteries are normal in size and flow with mild atherosclerotic calcifications. Hypoplastic right A1. Otherwise, the flow within the paired anterior cerebral arteries is normal and symmetric. The flow within the middle cerebral arteries is normal and symmetric. The anterior communicating artery is seen. No aneurysms are seen. Posterior circulation: Visualized portions of the vertebral arteries demonstrate normal caliber, and join to form a normal appearing basilar artery. origin of the left SOLAR ENERGY SYSTEMS ENGINEER. Flow within the posterior cerebral arteries is normal and symmetric. No aneurysms are seen. NECK CT ANGIOGRAPHY: Carotid system: The great vessels demonstrate a conventional anatomy as they arise from the aortic arch with atherosclerotic calcifications. The origins of the common carotid arteries appear patent. The common carotid arteries demonstrate normal caliber and courses. The bifurcation regions demonstrate atherosclerotic calcifications with mild, less than 50% narrowing of the proximal ICAs bilaterally. The internal carotid arteries otherwise demonstrate normal calibers and courses. Posterior circulation: The origins of the vertebral arteries both appear widely patent. The more superior extracranial portions of both vertebral arteries also demonstrate normal courses and calibers. They join to form a normal appearing basilar artery. Soft tissues: Visualized neck soft tissues demonstrate no suspicious abnormalities. Bones: No suspicious bony lesions. Visualized cervical spine appears normally aligned. Degenerative changes of the spine. IMPRESSION: No significant intracranial arterial abnormality is seen. No significant abnormality is seen within the arteries of the neck. Atherosclerotic calcifications of bilateral carotid bulbs with mild, less than 50% stenosis of the proximal ICAs bilaterally. ECG Data Attestation: I personally reviewed and interpreted this ECG as follows: Interpretation: EKG interpreted ED physician sinus at 92 beats per minute, QTC 516, normal axis, nonspecific ST change, no STEMI MDM Narrative Medical decision making narrative: Patient is a 72-year-old male history of Parkinson's hypertension hyperlipidemia gout comes in via EMS from home for evaluation of presyncopal symptoms. Was attempting to go up the stairs when he felt lightheaded dizzy and is unsure if he actually passed out, has had decreased p.o. intake and liquids secondary to trying to get rid of his chronic lymphedema. At time of initial evaluation NIH of 0 no focal deficits patient with low [place] Island[place] syncope patient was instructed to follow up with outpatient PCP and Cardiology for continued evaluation treatment of his symptoms. Discharge Plan Departure Prescriptions: No Action carvedilol [Coreg] 6.25 mg tablet 6.25 mg PO BID Rx Instructions: must administer with a meal/food allopurinol 300 mg tablet 300 mg PO DAILY losartan [Cozaar] 50 mg tablet 50 mg PO DAILY atorvastatin [Lipitor] 10 mg tablet 5 mg PO BEDTIME venlafaxine 75 mg capsule,extended release 24hr 75 mg PO DAILY carbidopa-levodopa 25-100 mg tablet,disintegrating 2 tab PO TID carbidopa-levodopa 50-200 mg tablet extended release 1 tab PO BEDTIME trazodone 50 mg tablet 75 mg PO BEDTIME PRN (Reason: Insomnia) ascorbic acid (vitamin C) 500 mg capsule 500 mg PO DAILY Patient Comments: twice a day omeprazole 20 mg capsule,delayed release(DR/EC) 20 mg PO DAILY PRN (Reason: Heartburn) mecobalamin (vitamin B12) 2,500 mcg tablet,chewable 2,500 mcg PO DAILY aspirin 81 mg tablet,chewable 81 mg PO DAILY multivitamin Tablet 1 tab PO DAILY fluticasone propionate 50 mcg/actuation spray,suspension 2 spray intranasal DAILY Rx Instructions: administer into each nostril capsaicin 0.025 % cream 1 applic topical QID Rx Instructions: do not wash area for at least 30 min after application furosemide [Lasix] 40 mg tablet 40 mg PO DAILY Qty: 10 0RF glipizide 5 mg tablet extended release 24hr 5 mg PO DAILY tamsulosin 0.4 mg capsule 0.4 mg PO DAILY metformin 500 mg tablet extended release 24 hr 1,000 mg PO BID pregabalin 150 mg capsule 150 mg PO TID cefuroxime axetil 500 mg tablet 500 mg PO BID Qty: 16 0RF Referrals: Ynes Laird MD [Primary Care Provider] -
--- NOTE | 2024-07-08 10:02 | EKG_ITS ---
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
--- NOTE | 2024-07-08 10:02 | DI.RAD.S_ITS ---
PROCEDURE: XR CHEST 1V INDICATIONS: chest pain TECHNIQUE: One view of the chest was acquired. COMPARISON: None. FINDINGS: Surgical changes and devices: None. Lungs and pleura: Lungs are clear. No pleural effusions or pneumothorax. Mediastinum: Mediastinal contours appear normal. Heart size is normal. Bones and chest wall: No suspicious bony lesions. Overlying soft tissues appear unremarkable. IMPRESSION: No acute cardiopulmonary abnormality is seen. Dictated by: Ed Taylor M.D. on 07/08/2024 at 10:36 Approved by: Ed Taylor M.D. on 07/08/2024 at 10:36
--- NOTE | 2024-07-08 10:04 | DI.CT.S_ITS ---
PROCEDURE: CT ANGIO HEAD AND NECK INDICATIONS: Syncope TECHNIQUE: After the administration of intravenous contrast, 1 mm thick sections acquired from the aortic arch through the [place] of [place]. 3-dimensional eplubrm-etonzldur-bpzzgqcdob (MIP) and/or volume rendering reformats were acquired of the central intracranial vasculature and neck separately. For radiation dose reduction, the following was used: automated exposure control, adjustment of mA and/or kV according to patient size. COMPARISON: [facility], , MR STROKE, 06/24/2020, 11:14. FINDINGS: Image quality: Diagnostic. BRAIN: Please refer to separately dictated CT of the head. HEAD CT ANGIOGRAPHY: Anterior circulation: Intracranial internal carotid arteries are normal in size and flow with mild atherosclerotic calcifications. Hypoplastic right A1. Otherwise, the flow within the paired anterior cerebral arteries is normal and symmetric. The flow within the middle cerebral arteries is normal and symmetric. The anterior communicating artery is seen. No aneurysms are seen. Posterior circulation: Visualized portions of the vertebral arteries demonstrate normal caliber, and join to form a normal appearing basilar artery. origin of the left ANIMAL NURSE. Flow within the posterior cerebral arteries is normal and symmetric. No aneurysms are seen. NECK CT ANGIOGRAPHY: Carotid system: The great vessels demonstrate a conventional anatomy as they arise from the aortic arch with atherosclerotic calcifications. The origins of the common carotid arteries appear patent. The common carotid arteries demonstrate normal caliber and courses. The bifurcation regions demonstrate atherosclerotic calcifications with mild, less than 50% narrowing of the proximal ICAs bilaterally. The internal carotid arteries otherwise demonstrate normal calibers and courses. Posterior circulation: The origins of the vertebral arteries both appear widely patent. The more superior extracranial portions of both vertebral arteries also demonstrate normal courses and calibers. They join to form a normal appearing basilar artery. Soft tissues: Visualized neck soft tissues demonstrate no suspicious abnormalities. Bones: No suspicious bony lesions. Visualized cervical spine appears normally aligned. Degenerative changes of the spine. IMPRESSION: No significant intracranial arterial abnormality is seen. No significant abnormality is seen within the arteries of the neck. Atherosclerotic calcifications of bilateral carotid bulbs with mild, less than 50% stenosis of the proximal ICAs bilaterally. Any quantitative measurements of stenosis were performed using NASCET criteria. Dictated by: Burton Pringle M.D. on 07/08/2024 at 11:41 Approved by: Burton Pringle M.D. on 07/08/2024 at 11:47
--- NOTE | 2024-07-08 10:04 | DI.CT.S_ITS ---
PROCEDURE: CT HEAD/BRAIN WO CON INDICATIONS: Syncope TECHNIQUE: Noncontrast 4.5 mm thick angled axial sections acquired from the foramen magnum to the vertex, with coronal and sagittal reformats. For radiation dose reduction, the following was used: automated exposure control, adjustment of mA and/or kV according to patient size. COMPARISON: , MR, MR STROKE, 06/24/2020, 11:14. FINDINGS: Image quality: Diagnostic. CSF spaces: Basal cisterns are patent. No extra-axial fluid collections. The ventricles are symmetric in size and shape. Brain: No intracranial bleeds or masses. There is cerebral volume loss for age, with resultant ventricular and sulcal prominence. There are periventricular and deep white matter chronic small vessel ischemic changes. There is intracranial internal carotid artery atherosclerosis. Skull and face: Calvarium and visualized facial bones appear intact, without suspicious lesions. Sinuses: Visualized sinuses and mastoids are clear. IMPRESSION: No acute intracranial pathology. Dictated by: Burton Pringle M.D. on 07/08/2024 at 11:39 Approved by: Burton Pringle M.D. on 07/08/2024 at 11:41
[2024-07-08 10:13] LABS: Add Manual Diff / Slide Review NO; Basophils Absolute Auto 100 /uL (0-100); Basophils Percent Auto 0.4 % (0-2); Eosinophils Absolute Auto 200 /uL (0-450); Eosinophils Percent Auto 1.5 % (2-4); Hematocrit 42.9 % (41-53); Hemoglobin 14.1 g/dL (13.5-17.5); Lymphocytes Absolute Auto 1000 /uL (1100-4500); Lymphocytes Percent Auto 8.2 % (25-40); Mean Corpuscular HGB Conc 32.8 % (30-36); Mean Corpuscular Volume 88.4 fL (80-100); Monocytes Absolute Auto 800 /uL (0-900); Monocytes Percent Auto 7.3 % (3-14); Neutrophils Absolute Auto 9500 /uL (1500-7000); Neutrophils Percent Auto 82.6 % (50-75); Platelet Count 296 X10^3/uL (150-400); Red Blood Cell Count 4.85 X10^6/uL (4.5-5.9); White Blood Cell Count 11.6 X10^3/uL (4.5-11.0)
[2024-07-08 10:14] LABS: INR 1.1 (0.9-1.3); Prothrombin Time 12.4 SECONDS (9.4-12.5)
[2024-07-08 10:17] LABS: PTT Partial Thromboplastin Tim 34 SECONDS (25.1-36.5)
[2024-07-08 10:19] LABS: Alanine Aminotransferase 8 IU/L (<50); Albumin 4.3 g/dL (3.5-5.0); Albumin Globulin Ratio 1.2 (1.0-2.8); Alkaline Phosphatase 106 U/L (38-126); Aspartate Aminotransferase 25 IU/L (17-59); BUN Creatinine Ratio 17.6 (6-22); Bilirubin Total 0.9 mg/dL (0.2-1.3); Blood Urea Nitrogen 13 mg/dL (9-20); Calcium 9.5 mg/dL (8.4-10.2); Carbon Dioxide 22 mmol/L (22-32); Chloride 105 mmol/L (98-107); Creatine Kinase 49 U/L (55-170); Estimated Glomerular Filt Rate > 60 mL/min (>60); Globulin 3.6 g/dL (1.7-4.1); Glucose 186 mg/dL (80-110); HEMOLYSIS 18 (0-50); Lipase 117 U/L (23-300); Magnesium 1.5 mg/dL (1.6-2.3); Potassium 4.2 mmol/L (3.4-5.1); Sodium 137 mmol/L (137-145); Total Protein 7.9 g/dL (6.3-8.2)
[2024-07-08 10:30] LABS: NT-proBNP (BNP-Adult 18+) 170 pg/mL (<125); Troponin I < 0.012 ng/mL (0.01-0.034)
[2024-07-08] MEDS: MAGNESIUM SULFATE 2 GM/50 ML PIGGYBACK IV (11:16)
--- NOTE | 2024-07-08 12:51 | PC.NURSE ---
Pt OOB with assistance and walker. Ambulated to bathroom with shuffling gait. Reports flu shot yesterday which may add to his weakness today. Reports he will need to take a cab home since just received a pacemaker and cannot drive.
== END 2024-07-08 13:08 | disposition home or self-care (01) ==
PROVIDERS: Emergency Provider Student in an Organized Health Care Education/Training Program; PCP Internal Medicine
DX: R55 Syncope and collapse (principal); R07.9 Chest pain, unspecified; I45.10 Unspecified right bundle-branch block; I10 Essential (primary) hypertension; E78.5 Hyperlipidemia, unspecified; G20.A1 Parkinson's disease without dyskinesia, without mention of fluctuations; Z79.899 Other long term (current) drug therapy
CPT/HCPCS: 36415; 70450; 70496; 70498; 71045; 80053; 82550; 83690; 83735; 83880; 84484; 85025; 85610; 85730; 93005; 96360; 99284; J3475; Q9967

== ENCOUNTER → 2024-10-19 16:01 | Outpatient (CLI) | payer MEDICARE, SELFPAY ==
--- NOTE | 2024-10-19 16:03 | DI.RAD.S_ITS ---
PROCEDURE: XR KNEE RT 3V INDICATIONS: Contusion of right knee, subsequent encounter TECHNIQUE: 3 views of the knee were acquired. COMPARISON: None. FINDINGS: Bones: Xuev-eq-paudthhm knee arthrosis. Extensor mechanism enthesopathy. No acute displaced fracture. Slight deformity of the proximal fibular shaft may be from prior injury. Soft tissues: Small joint effusion and peripatellar soft tissue swelling. IMPRESSION: Degenerative changes and extensor mechanism enthesopathy. Possible prior injury of the proximal fibular shaft. Small joint effusion and peripatellar soft tissue swelling If there is high concern for further derangement, consider MRI evaluation. Dictated by: Saran Rodriguez M.D. on 10/19/2024 at 17:17 Approved by: Saran Rodriguez M.D. on 10/19/2024 at 17:18
== END ==
PROVIDERS: PCP Internal Medicine; Referring Provider Family Medicine; Visit Provider Family Medicine
DX: S80.01XD Contusion of right knee, subsequent encounter (principal); M25.461 Effusion, right knee
CPT/HCPCS: 73562

== ENCOUNTER → 2025-05-18 11:30 | Outpatient (CLI) | payer MEDICARE, SELFPAY ==
--- NOTE | 2025-05-18 14:42 | ST.SWALLOW ---
Visit Care Team Role Provider Type Ynes Laird MD Family Provider Physician Primary Care Provider Specialty: Internal Medicine Address: [place], [address] Email: Burt Newsome DO Attending Provider Non-Staff Referring Provider Specialty: Psychiatry Address: [facility] [place], [address] Email: Modified Barium Swallow Study [employer] Modified Barium Swallow Study Start: 05/18/25 13:19 Freq: Status: Active Protocol: Document 05/18/25 13:20 LNK (Rec: 05/18/25 14:38 LNK Desktop) Modified Barium Swallow Study Total Time Visit Start Time 12:00 Visit Stop Time 12:45 Total Visit Minutes [address] Burt Newsome Reason for Referral dysphagia Setting Setting Outpatient Care Patient Information Identification Type Name,Date of Patient History Pt was seen for a Modified Barium Swallow Study at the referral of Dr Burt Newsome. Pt was accompanied by his who assisted in providing background information Pt was diagnosed with Parkinson's Disease (PD) in 2019 when he noticed shuffling when walking, swallow difficulties and slight tremors. His speech was audible today although a mild voice volume; however he states this does not bother him. His reported that she cannot understand him at times, especially when he is mumbling and talking softly. Pt's PMH includes GERD for which he takes Omneprozol. Pt describes that his swallowing difficulties began about 1-2 years ago. Specifically, he states feeling of food stuck in his throat, such as rice, ground beef, bread, which requires him to drink a lot of fluids during meals to help with clearance or to clear his throat. His reports that he coughs during every meal, every day. pt stated he will sometimes cough pieces of food into his mouth Subjective Pt was seated in the flouroscopy chair with directions Observations and procedures explained for him. He indicated he understood and agreed to proceed. Patient Positioning Position View Lat-A/P Imaging Lateral View Textures Administered Trials Presented Extremely Thick Liquid via Spoon (IDDSI 4),Regular ( IDDSI 7) Barium Tablet Yes The IDDSI Framework Protocol: IDDSI.1 Oral Impairment Source: The Modified Barium Swallow Impairment Profile (MBSImP??) Lip Closure No labial escape Oral Residue Complete oral clearance Initiation of Bolus head at posterior laryngeal surface of epiglottis Pharyngeal Swallow Additional Oral Oral phase of swallowing observe to be WFL Impairment *OME and DKS were observed to be WFL. Observations *Dentition natural and in good hygiene *Mastication observed with rotary chew pattern. *Good bolus formation, control and AP transition. *Velopharyngeal closure was WNL. Pharyngeal Impairment Source: The Modified Barium Swallow Impairment Profile (MBSImP??) Soft Palate No bolus between soft palate & pharyngeal wall Elevation Laryngeal Elevation Part.sup.move.thyroid cart/part.approx.arytenoids to epiglot.petiole Anterior Hyoid Partial anterior movement Excursion Epiglottic Movement Partial inversion Laryngeal Vestibular Complete; no air/contrast in laryngeal vestibule Closure Pharyngeal Stripping Present - diminished Wave Pharyngoesophageal Partial distention/partial duration; partial Segment Opening obstruction of flow Tongue Base Wide column of contrast/air betwn tongue base & post. Retraction pharyngeal wall Pharyngeal Residue Collection of residue within/on pharyngeal structures Location Valleculae Additional *Duration and extension of UES reduced with pooling of Pharyngeal residue atop the UES across all trials. Impairment *Large osteophytes noted and C4-C6 that altered/ Observations narrowed esophagus shape. Bolus flow for liquids noted to be adequate; however for semi-solid and solid trials, part of the trial bolus remained above the osteophyte and atop the UES *Reduced stripping of posterior wall resulting in reduced control of the bolus with pharyngeal residue *Reduced base of tongue retraction strength, hyolaryngeal elevation and epiglottic inversion. *Epiglottis inverts to a horizontal position resulting in significant residue pooled within the valeculla for solid/semi-solid trials. Pooling cleared with water wash *Laryngeal penetration x4 with consecutive swallows of thin liquid without residual within larynx *No tracheal aspiration observed A/P View Textures Administered Trials Presented Thin Liquid via Spoon (IDDSI 0) The IDDSI Framework Protocol: IDDSI.1 A/P View Observations Pharyngeal Complete Contraction Esophageal Clearance Esophageal retention w/regtrograde flow below Upright Position pharyngoesoph segment Vocal Fold Function Good Esophageal Function Poor Motility,Reverse Peristalsis,Stasis,Narrowing Additional A-P Thin barium and calibrated barium tablet used in AP Observations trials Esophageal retention of semisolid and solid trials noted from level of clavicles to LES. Partially cleared with water. Retroflow of esophageal contents observed Thin barium liquid and barium tablet cleared esophagus in a timely manner Clinical Impressions Dysphagia Type Pharyngeal,Esophageal Findings Pt presented with pharyngeal and esophageal dysphagia. Initially when pt position changed from lateral to AP, esophageal retention of semi-solid and cookie trials remained in the esophagus from sternal area to LES. Three plus water swallows partially cleared the esophagus. Retroflow of esophageal contents to the level of pt's clavicles was also observed following water wash to clear esophagus. Liquid barium and barium tablet cleared esophagus as expected. During the AP trials, the pt expressed discomfort near his sternal notch area. The results and recommendations of the MBSS were described to the pt and his while observing still pictures taken during the MBSS. Pt was encouraged to continue alternating solids and liquids and elevate the head of his bed to allow for a gravity assist in esophageal clearing. Also, it was recommended that the pt alternate fluids with solids during meals to prevent/reduce stacking of solid foods. Pt and his expressed appreciation and indicated they understood. All questions were addressed. Rehabilitation Good Potential Patient Appropriate Yes: Base of tongue; safe swallow strategies for Therapy Recommendations Diet Comments No change in diet at this time Aspiration Precautions Recommended Upright at 90 Degrees,Alternate Liquids/Solids,Frequent Precautions Rest Periods,Small Bites/Sips Treatment Plan Therapy Outpatient Speech Therapy Recommendations Recommended Other Referrals Additional GI consult re: reduced UES opening Recommended Referrals Therapy Strategy Small Bites and Sips,Alternate Liquids/Solids Recommendations
== END ==
LOC: RAD 11:31
PROVIDERS: Family Provider Internal Medicine; PCP Internal Medicine; Referring Provider Internal Medicine; Visit Provider Internal Medicine
DX: R13.14 Dysphagia, pharyngoesophageal phase (principal)
CPT/HCPCS: 74230; 92611

== ENCOUNTER 2025-07-13 12:23 | Day surgery (SDC) | payer MEDICARE, SELFPAY ==
[2025-07-07 09:58] VITALS: BMI 33.3
--- NOTE | 2025-07-13 | PATH_ITS ---
[facility] Accession Number: [id number] No. of containers..02 Tissue . 01 Material submitted: . PART A: duodenum - DUODENAL PART B: stomach - ANTRAL . 01 Diagnosis: A. DUODENUM, BIOPSY: Mild chronic duodenitis. Negative for villous blunting and intraepithelial lymphocytosis. Negative for dysplasia and malignancy. . B. STOMACH, ANTRUM, BIOPSY: Histologically unremarkabel antral mucosa. Negative for Helicobacter organisms on H/E stain. Negative for intestinal metaplasia, dysplasia, and malignancy. [facility] 07/22/2025 1157 Local . 01 Electronically signed: . Jeannette Figueredo DO, Pathologist NPI- [id number] . 01 Gross description: . A. Received in formalin with two patient identifiers and duodenal biopsy. The specimen consists of multiple tejeda soft tissue fragments measuring 1.5 x 0.6 x 0.2 cm in aggregate. The specimen is filtered and entirely submitted in cassette A1. B. Received in formalin with two patient identifiers and antral biopsy. The specimen consists of two tejeda-white soft tissue fragments measuring 0.5 x 0.2 x 0.2 cm and 0.4 x 0.2 x 0.2 cm. The specimen is entirely submitted in cassette B1. ([id number]) /MRV 07/19/2025 1354 Local . 01 Pathologist provided ICD-10: K29.80 . 01 CPT . 038088, [id number] Specimen Comment: A courtesy copy of this report has been sent to [facility] Pathology Performed at: [address] [address], [place], [place] [id number] MD Guy Finnegan MD Phone: [phone]
--- NOTE | 2025-07-13 06:19 | PM.PREOP ---
Pre-operative Note Interval Note History & Physical reviewed/Exam performed by Physician: Yes Changes to H&P: No ASA Class (for procedural sedation): III
[2025-07-13 12:53] VITALS: BP 145/68; PULSE 78; RESP 12; TEMP 36.1; O2SAT 95
[2025-07-13] MEDS: LACTATED RINGERS 1,000 ML 42 ML IV (13:06)
--- NOTE | 2025-07-13 13:13 | PM.OP.EGD ---
Operative Date/Time/Diagnoses Date of procedure: 07/13/25 Time of procedure: 13:13 Pre-op diagnosis: Dysphagia Post-op diagnosis: other (Polypoid duodenitis, antral gastritis) Procedure & Clinicians Study performed: EGD with biopsy Same procedure(s) as scheduled: Yes Indications: 75yo M with dysphagia Surgeon: Serge Marie Anesthesia Type: MAC +/- Procedure Notes SCOAP/Timeout: Performed Procedure in detail: EGD Informed consent was obtained. The procedure, its risks, benefits, and alternatives were discussed. Patient understood and agreed to proceed. The patient was placed in the left lateral decubitus position with head elevated. Sedation given per anesthesia. The video endoscope was inserted into the oropharynx and guided under direct vision into the esophagus, stomach, and duodenum which were carefully examined. The scope was retroflexed to examine the hiatus and gastroesophageal junction. Antral biopsies were obtained for Helicobacter pylori. The patient tolerated the procedure very well. There were no apparent complications. Significant EGD findings: Z-line noted at: 40cm Polypoid duodenitis, biopsied Mild antral gastritis, biopsied No esophageal stricture or mass, no esophagitis, patulous LES but no hiatal hernia Multiple benign gastric polyps, likely PPI effect No esophageal explanation for dysphagia symptom Findings: gastritis and other findings (polypoid duodenitis) Specimen(s): other (duodenal and antral biopsies) Complications: none Impression: Polypoid duodenitis Antral gastritis No esophageal findings to explain dysphagia symptom Post-procedure Recommendations: Will call with biopsy results Plan for aftercare: PACU then home Continue PPI Follow up: as needed Disposition: PACU
[2025-07-13 13:44] VITALS: BP 110/59; PULSE 72; RESP 12; TEMP 36.2; O2SAT 91
[2025-07-13 13:49] VITALS: BP 117/56; PULSE 71; RESP 18; O2SAT 92
[2025-07-13 13:54] VITALS: BP 119/64; PULSE 71; RESP 16; O2SAT 94
[2025-07-13 13:59] VITALS: BP 120/66; PULSE 67; RESP 20; TEMP 36.5; O2SAT 92
== END 2025-07-13 14:28 | disposition home or self-care (01) ==
PROVIDERS: PCP Internal Medicine; Referring Provider Surgery; Visit Provider Surgery
PROC: 0DJ08ZZ Inspection of Upper Intestinal Tract, Via Natural or Artificial Opening Endoscopic (ICD-10-PCS; CPT 43239; principal; 2025-07-13 14:00)
DX: K29.80 Duodenitis without bleeding (principal); K29.70 Gastritis, unspecified, without bleeding
CPT/HCPCS: 43239; 82962; J2704; J7120